=== PATIENT | male | born 1950 | race Caucasian/White ===

== ENCOUNTER → 2018-07-19 | Outpatient (CLI) | payer MEDICARE, OTHER ==
[~2018-07-19] MED LIST: ALIR75SY SQ; ASPI325T8 PO; LEVO750T31 PO; LISI1TAB5 PO; PRED-220 PO
--- NOTE | 2018-07-19 12:09 | RAD ---
MR#: [id number] Date of Study: 07/19/2018 Ordering Physician: ADRIEN MERCADO, Referring Physician: ADRIEN MERCADO, Tech: Muriel Hood RDMS, RVT, RTR APPROVED REPORT Patient Location : OUT-PATIENT Indications Lower Extremity Edema : Bilateral Bilateral greater saphenous veins stripped in the past for prior procedure. No reflux is noted in the bilateral lesser saphenous veins. Critical Notification Critical Value: No <Conclusion> Prior GSV vein stripping Negative for LSV reflux. Signed by : Azam Nova, Electronically Approved : 07/19/2018 12:08:25
--- NOTE | 2018-07-19 13:10 | RAD ---
MR#: [id number] Date of Study: 07/19/2018 Ordering Physician: ADRIEN MERCADO, Referring Physician: ADRIEN MERCADO, Tech: Muriel Hood, BRONSON, RVT, RTR APPROVED REPORT Patient Location: OUT-PATIENT Indications Peripheral Vascuolar Disease with history of Bilateral Arterial Grafts. Risk Factors History of Lower Extremity PAD: Bilaterally Parmar scale images demonstrate bilateral SFA occlusion. There are mild diffuse plaques throughout the vasculature. On the right, profunda velocities are wnl but the CUSTODIAL FOREMAN velocities are diminished likey related to mor e proximal disease. The fem-pop bypass graft is patent without anastomotic stenosis. The popliteal ar camila demonstrates mild disease. The peroneal artery demonstrates elevated velocities with likely 50% stenosis. The anterior tibial is likely diffusely diseased but patent. The proximal and mid posterior tibial is likely occluded with distal reconstituation via collaterals. On the left, the CUSTODIAL FOREMAN and DFA velocities are within normal limits. The SFA is occluded with patent gra ft from the fem-peroneal artery without anastomotic stenosis. The popliteal artery is occluded. The p osterior tibial artery is likely severely diseased. The anterior tibial artery is probably diffusely diseased but appears patent. VELOCITY AND DOPPLER WAVEFORM ANALYSIS RIGHT cm/secWaveformSeverity LEFT cm/secWaveform Severity pCFA 34.7pCFA 136.7 Prof Fem Art. 51.2Prof Fem Art. 47.4 Fem Art Prox. Occluded (100%)Fem Art Prox. Occluded (100%) Fem Art Mid. Occluded (100%)Fem Art Mid. Occluded (100%) Fem Art Dist. Occluded (100%)Fem Art Dist. Occluded (100%) Pop Art(AK) 124.0Pop Art(AK) Occluded (100%) COST AND SALES RECORD SUPERVISOR Prox. 36.8PTA Prox. COST AND SALES RECORD SUPERVISOR Mid.Occluded (100%)COST AND SALES RECORD SUPERVISOR Mid. COST AND SALES RECORD SUPERVISOR Dist. Occluded (100%)COST AND SALES RECORD SUPERVISOR Dist. 16.6 Per Art Prox. 189.1Per Art Prox. 47.4 JOANIE Prox. 56.4ATA Prox. 68.3 DPA 27.9DPA 12.4 BYPASS GRAFT ANALYSIS RIGHT cm/secWaveform SeverityLEFT cm/secWaveformSeverity Prox. Anastomosis 50.0Prox. Anastomosis 40.1 Proximal 60.6Proximal 58.7 Mid 52.1Mid 61.6 Distal 59.8Distal 67.7 Dist. Anastomosis 74.6Dist. Anastomosis 74.6 Critical Notification Critical Value: No <Conclusion> 1. Patent bilateral fem-below knee vein grafts. 2. Severe below knee disease with two vessel run-off bilaterally. 3. Cannot rule out right sided iliac disease. Signed by : Azam Nova, Electronically Approved : 07/19/2018 13:09:04
== END | disposition home or self-care (01) ==
LOC: US 08:57
PROVIDERS: ATTEND Internal Medicine Cardiovascular Disease
DX: I65.23 Occlusion and stenosis of bilateral carotid arteries (principal); I10 Essential (primary) hypertension; J44.9 Chronic obstructive pulmonary disease, unspecified; I25.10 Atherosclerotic heart disease of native coronary artery without angina pectoris; Z87.891 Personal history of nicotine dependence; Z95.5 Presence of coronary angioplasty implant and graft; Z88.8 Allergy status to other drugs, medicaments and biological substances; Z82.49 Family history of ischemic heart disease and other diseases of the circulatory system; Z82.3 Family history of stroke; Z80.1 Family history of malignant neoplasm of trachea, bronchus and lung
CPT/HCPCS: 93925; 93970

== ENCOUNTER → 2018-07-28 | Outpatient (CLI) | payer MEDICARE, OTHER ==
--- NOTE | 2018-07-28 13:03 | CARD ---
MR#: [id number] Date of Study: 07/28/2018 Ordering Physician: ADRIEN JORDAN, Referring Physician: ADRIEN JORDAN, Tech: Muriel Patterson APPROVED REPORT EXAM: Two-dimensional and M-mode echocardiogram with Doppler and color Doppler. Other Information Quality : AverageHR: 74bpm Rhythm : NSR INDICATION Coronary Artery Disease RISK FACTORS Hypertension Hyperlipidemia Diabetes 2D DIMENSIONS RVDd2.2 (2.9-3.5cm)Left Atrium(2D)3.6 (1.6-4.0cm) IVSd0.9 (0.7-1.1cm)Aortic Root(2D)3.2 (2.0-3.7cm) LVDd4.6 (3.9-5.9cm)LVOT Diameter2.1 (1.8-2.4cm) PWd1.0 (0.7-1.1cm)LVDs2.7 (2.5-4.0cm) FS (%) 41.1 %SV69.5 ml LVEF(%)72.1 (>50%) Aortic Valve AoV Peak Jhony.149.1cm/sAoV VTI27.8cm AO Peak GR.8.9mmHgLVOT Peak Jhony.107.4cm/s LVOT VTI 21.18cmAO Mean GR.5mmHg SARAH (VMAX)2.16fz6GCX (VTI)2.61cm2 Mitral Valve MV E Eqvvnxcg28.0cm/sMV DECEL YUPX736fn MV A Dldjbrst42.6cm/sE/A Ratio0.9 Tricuspid Valve TR P. Jdcjtvmw976yw/sRAP TGVDHYWR4uhBj TR Peak Gr.39kiPqKHCW67ggXm LEFT VENTRICLE The left ventricle is normal size. There is normal left ventricular wall thickness. The left ventricu lar systolic function is normal. The Ejection Fraction is 65-70%. There is normal LV segmental wall m otion. Transmitral Doppler flow pattern is normal for age. RIGHT VENTRICLE The right ventricle is normal size. There is normal right ventricular wall thickness. The right ventr icular systolic function is normal. ATRIA The left atrium size is normal. The right atrium size is normal. The interatrial septum is intact wit h no evidence for an atrial septal defect or patent foramen ovale as noted on 2-D or Doppler imaging. AORTIC VALVE The aortic valve is normal in structure and function. Doppler and Color Flow revealed no significant aortic regurgitation. There is no significant aortic valvular stenosis. There is no aortic valvular v egetation. MITRAL VALVE The mitral valve is normal in structure and function. There is no mitral valve stenosis. Doppler and Color-flow revealed trace mitral regurgitation. TRICUSPID VALVE The tricuspid valve is normal in structure and function. Doppler and Color Flow revealed no tricuspid valve regurgitation noted. There is no tricuspid valve stenosis. PULMONIC VALVE The pulmonic valve is not well visualized. Doppler and Color Flow revealed no pulmonic valvular regur gitation. GREAT VESSELS The aortic root is normal in size. The IVC is normal in size and collapses >50% with inspiration. PERICARDIAL EFFUSION There is no evidence of significant pericardial effusion. Critical Notification Critical Value: No <Conclusion> The left ventricular systolic function is normal. The Ejection Fraction is 65-70%. There is normal LV segmental wall motion. Doppler and Color-flow revealed trace mitral regurgitation. There is no evidence of significant pericardial effusion. Signed by : Adrien Jordan, Electronically Approved : 07/28/2018 13:02:14
== END | disposition home or self-care (01) ==
LOC: ECHO 09:16
PROVIDERS: ATTEND Internal Medicine Cardiovascular Disease
DX: I25.10 Atherosclerotic heart disease of native coronary artery without angina pectoris (principal); I10 Essential (primary) hypertension; E78.5 Hyperlipidemia, unspecified; E11.9 Type 2 diabetes mellitus without complications; J44.9 Chronic obstructive pulmonary disease, unspecified; E87.6 Hypokalemia; Z87.891 Personal history of nicotine dependence; Z88.8 Allergy status to other drugs, medicaments and biological substances; Z82.49 Family history of ischemic heart disease and other diseases of the circulatory system; Z82.3 Family history of stroke; Z80.1 Family history of malignant neoplasm of trachea, bronchus and lung
CPT/HCPCS: 93306

== ENCOUNTER → 2019-04-06 | Outpatient (CLI) | payer MEDICARE, OTHER ==
[~2019-04-06] MED LIST changes: +REGADENOSON 0.4 MG/5 ML DISP.SYRIN. IV ONE
--- NOTE | 2019-04-06 12:34 | RAD ---
MR#: [id number] Date of Study: 04/06/2019 Ordering Physician: ADRIEN MERCADO Referring Physician: RAÚL HILLIARD Tech: RT Talia William) (N) APPROVED REPORT Test Type: Pharmacological Stress Nurse/Tech: RT Stewart (Precious) (N) Test Indications: chest heaviness Cardiac History: CABG 4 bypass Medications: see ehr Medical History: see ehr Resting ECG: sinus rhythm Resting Heart Rate: 74 bpm Resting Blood Pressure: 141/66mmHg Pretest Chest Pain: None Nurse/Tech Notes Consent: The procedure was explained to the patient in lay terms. Informed consent was witnessed. Kyle eout was entered into [employer] ([employer]). History and Stress Test performed by RT Stewart (R) (N) Pharm. Details Pharmacologic stress testing was performed using 0.4mg per 5ml of regadenoson given intravenously ove r 7-10 seconds. POST EXERCISE Max HR: 106 bpm Max Blood Pressure: 135/64mmHg INTERPRETATION Stress EKG Conclusion: No evidence of stress induced EKG changes. Imaging Protocol IMAGE PROTOCOL: Rest Tc-99m/stress Tc-99m 1 day Rest: Stress: Viability: Radiopharm.Tc99m UlqpgrtrsJn26m Sestamibi Dose10.2mCi 30.8mCi Duration 15min. 15min. Img Date 04/06/2019 04/06/2019 Inj-Img Smth08zbl. 60min. Rest Admin Site:IV - Left AntecubitalAdministrator: RT Stewart (Precious)(N) Stress Admin Site: IV - Left AntecubitalAdministrator: RT Talia William)(N) STRESS DATA End Diast. Vol.93.0mlAv. Heart Rate97.0bpm LVEDV index BSA2.0mlCardiac Output0.1L/min End Syst. Vol.33.0mlCO Index BSA5.8L/min LVESV index BSA1.0mlMyocardial Vvuv372.0g Eject. Hfxtwfrt54.0% Stress Rates Pk. Fill Rate3.11EDV/secLVtime Pk. Fill 160.94msec Pk. Empty Rate4.72ESV/secLVtime Pk. Pykaq007.39msec 1/3 Pk. Fill1.46EDV/sec Stress Scores Regional WT3.00Summed WT11.00 Regional WM0.00Summed WM17.00 The rest and stress images show normal perfusion, normal contraction and thickening. LV Perf. Quant 17 Seg. SSS6.00 17 Seg. SRS7.00 17 Seg. SDS3.00 Stress Defect Extent (% LAD)0.00Rest Defect Extent (% LAD)8.80Rev. Defect Extent (% LAD)0.00 Stress Defect Extent (% LCX) 22.50Rest Defect Extent (% LCX)12.50Rev. Defect Extent (% LCX)21.30 Stress Defect Extent (% RCA)0.00Rest Defect Extent (% RCA)0.00Rev. Defect Extent (% RCA)0.00 Stress Defect Extent (% SHIVA)8.70Rest Defect Extent (% SHIVA)10.00Rev. Defect Extent (% SHIVA)6.50 Other Information Quality:Fair Risk Assessment: Low Risk Conclusion 1. No evidence of stress induced EKG changes on vasodilator stress testing. 2. Grossly normal perfusion at stress/rest. Images degraded by motion artifact, but no significant is chemia noted. 3. Normal EF at > 60% 4. Low risk study Signed by : Azam Nova, Electronically Approved : 04/06/2019 12:33:33
== END | disposition home or self-care (01) ==
LOC: NM 07:56
PROVIDERS: ATTEND Internal Medicine Cardiovascular Disease
DX: I25.10 Atherosclerotic heart disease of native coronary artery without angina pectoris (principal)
CPT/HCPCS: 78452; 93017; A9500; J2785; 96375; 96376

== ENCOUNTER 2020-04-08 20:43 | Observation (INO) | payer MEDICARE, OTHER ==
[~2020-04-08] VITALS: Ht 167.6 cm; Wt 72.4 kg
[~2020-04-08 20:43] MED LIST changes: +LISI1TAB19 PO; -LISI1TAB5 PO; -REGADENOSON 0.4 MG/5 ML DISP.SYRIN. IV ONE
--- NOTE | 2020-04-08 20:46 | PHYS DOC ---
Past History Past Medical History: Alcoholism, Anxiety, Arthritis, Bronchitis, CAD, CHF, DVT, High Cholesterol, Hypertension, TIA, Other Past Medical History Peripheral vascular disease Past Surgical History: Coronary Bypass Surgery, Other Past Surgical History Femoropopliteal bypass, stents Smoking: Cigarettes General Adult HPI: HPI: ".. 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 and all sudden.. I started feeling dizzy.. and confused... I for a moment.. could not figure out .. how to turn off the computer.. I got really fatigued. .. and robbie had a syncope episode.. I don't know how long it lasted... .I was having some fast heart rate.. skipped beats... but I was also short of breath....." Patient is a 69 year old male who presents with above hx and complaints of confusion, dyspnea, dizzy and syncope episode. Patient does have a significant past medical history for COPD, hypertension, hyperlipidemia, coronary artery disease status post coronary artery bypass, peripheral vascular disease status post femoropopliteal bypass bilateral lower legs,, CVA, with right sided weakness, TIA, gait disorder, continued tobacco use, arthritis, elevated lipids and deconditioning. Patient denies any recent changes in meds. Patient normally follows with Dr. Mckeon. Patient denies any recent travel outside the [place] area. Denies any recent sick ill contacts. Patient denies any history of immunosuppression. Review of Systems: Review of Systems: Constitutional: Denies fever or chills Eyes: Denies change in visual acuity HENT: Denies nasal congestion or sore throat Respiratory: Complains of shortness of breath Cardiovascular: Complains of edema. Complains of tachycardia and skipped beat GI: Denies abdominal pain, nausea, vomiting, bloody stools or diarrhea : Denies dysuria Musculoskeletal: Denies back pain or joint pain. Complains of generalized weakness and fatigue Integument: Denies rash Neurologic: Denies headache, denies new focal neuro changes. Endocrine: Denies polyuria or polydipsia Lymphatic: Denies swollen glands Psychiatric: Denies depression or anxiety Heart Score: HEART Score for Chest Pain: HEART Score for Chest Pain Response (Comments) Value History Moderately Suspicious 1 ECG Nonspecific Repolarizatio 1 Age > 65 2 Risk Factors >3 Risk Factors or Hx CAD 2 Troponin < Normal Limit 0 Total 6 Risk Factors: Risk Factors: DM, Current or recent (<one month) smoker, HTN, HLP, family history of CAD, obesity. Risk Scores: Score 0 - 3: 2.5% MACE over next 6 weeks - Discharge Home Score 4 - 6: 20.3% MACE over next 6 weeks - Admit for Clinical Observation Score 7 - 10: 72.7% MACE over next 6 weeks - Early Invasive Strategies Family History: Family History: Has not older sister at age 58 because of a stroke. Father age 60 because a heart attack. Mother age 60 because of stroke. Has a lung younger brother with lung cancer and hypertension. Current Medications: Current Meds: See nursing for home meds Allergies: Allergies: Allergies Coded Allergies Type Severity Reaction Last Updated Verified Goxjbwu-Qmz-Pvu Reductase Inhibitor Allergy Unknown 12/18/17 Yes Physical Exam: PE: Constitutional: Moderate acute distress, non-toxic appearance. [] HENT: Normocephalic, atraumatic, bilateral external ears normal, oropharynx moist, no oral exudates, nose normal. Tobacco stained mustache Eyes: PERRLA, EOMI, conjunctiva normal, no discharge. [] Neck: Normal range of motion, no tenderness, supple, no stridor. No bruits over the neck. JVD in the sitting position Cardiovascular: Tachycardia heart rate regular rhythm, no murmur. Occasional atrial premature contraction on monitor. PMI to the left. Lungs & Thorax: Bilateral breath sounds equal apexes scattered wheezing throughout on to auscultation [] coronary artery bypass graft. Basilar crackles bilaterally Abdomen: Bowel sounds decreased, soft, no tenderness, no masses, no pulsatile masses. [Old surgery scars Skin: Warm, dry, no erythema, no rash. Poor turgor. Peripheral venous stasis changes. Back: No tenderness, no CVA tenderness. [] Extremities: No tenderness, no cyanosis, no clubbing, has generalized right- sided weakness from previous stroke,, distal edema. Decreased distal sensation. Unable to appreciate cording. 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 Psychologic: Affect anxious, judgement normal, mood normal. [] EKG: EKG: My interpretation EKG shows a sinus rhythm at 98 bpm. Does have PACs, left axis deviation, nonspecific contour changes, no frankly acute STEMI with contralateral changes [] Radiology/Procedures: Radiology/Procedures: [address] [address] IMAGING REPORT Signed PATIENT: JABARI DELUNA ACCOUNT: [id number] : 1950 LOCATION: ER AGE: 69 SEX: M EXAM STATUS: REG ER ORD. PHYSICIAN: THEODORA TIERNEY MD REASON: mental status change PROCEDURE: CT HEAD WO CONTRAST Exam: CT head INDICATION: Mental status change TECHNIQUE: Sequential axial images through the head were obtained without the administration of IV contrast. Comparisons: None FINDINGS: No focal parenchymal lesion or hemorrhage is identified. There is no midline shift or sulcal effacement. Patchy areas of hypodensity within the periventricular white matter bilaterally. No acute vascular territory infarction is identified. Parmar-white distinction is preserved. The ventricular system is within normal limits without compression hydrocephalus. The basal cisterns are well maintained. The visualized portions of the paranasal sinuses and mastoid air cells are well-pneumatized. No acute fractures. IMPRESSION: Areas of ischemia, likely chronic, bilaterally. Exposure: One or more of the following in the visualized dose reduction techniques were utilized for this examination: 1. Automated exposure control 2. Adjustment of the MA and/or KV according to patient size Use of iterative of reconstructive technique Electronically signed by: Earline Jacinto MD (04/08/2020 9:32 PM) [id number] DICTATED AND SIGNED BY: EARLINE JACINTO MD DATE: 04/08/202131 CC: THEODORA TIERNEY MD; RYAN MCKEON MD ~ [][address] [address] IMAGING REPORT Signed PATIENT: JABARI DELUNA ACCOUNT: [id number] : 1950 LOCATION: ER AGE: 69 SEX: M EXAM STATUS: REG ER ORD. PHYSICIAN: THEODORA TIERNEY MD REASON: hx copd, dyspnea PROCEDURE: PORTABLE CHEST 1V Exam: Chest one view INDICATION: COPD TECHNIQUE: Frontal view of the chest Comparisons: None FINDINGS: Sternotomy wires are noted. The cardiomediastinal silhouette and pulmonary vessels are within normal limits. Small left pleural effusion. Visualized lung bases are clear. IMPRESSION: Findings likely related to pulmonary edema with small left pleural effusion. Electronically signed by: Earline Jacinto MD (04/08/2020 9:33 PM) [id number] DICTATED AND SIGNED BY: EARLINE JACINTO MD DATE: 04/08/202132 CC: THEODORA TIERNEY MD; RYAN MCKEON MD ~ Course & Med Decision Making: Course & Med Decision Making Pertinent Labs and Imaging studies reviewed. (See chart for details) Patient presentation testing and treatment plan discussed with . Will admit for further evaluation of consults to cardiology and neurology.. Well start antibiotics to cover for bronchitis and COPD exacerbation. Impression: 1. Syncope 2. CHF-diastolic dysfunction BNP 1397 3. Pulmonary Edema 4. Leukocytosis 11..9 5. Elevated D-dimer 1.59 6. Elevated Creat. 1.6 7. Elevated CRP 23.2 8. COPD exacerbation 9. Elevated glucose 132 [] Dragon Disclaimer: Dragon Disclaimer: This electronic medical record was generated, in whole or in part, using a voice recognition dictation system. Departure Departure: Disposition: HOME/RESIDENCE PRIOR TO ADM Condition: STABLE Referrals: RYAN MCKEON MD (PCP) Dragon Disclaimer This chart was dictated in whole or in part using Voice Recognition software in a busy, high-work load, and often noisy Emergency Department environment. It may contain unintended and wholly unrecognized errors or omissions. Dragon Disclaimer This chart was dictated in whole or in part using Voice Recognition software in a busy, high-work load, and often noisy Emergency Department environment. It may contain unintended and wholly unrecognized errors or omissions. THEODORA TIERNEY MD Apr 08, 2020 20:46
[2020-04-08] MEDS ORDERED: IV RINGERS SOLUTION,LACTATED 1,000 ML IV SCH (20:48)
--- NOTE | 2020-04-08 21:03 | EKG ---
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
--- NOTE | 2020-04-08 21:35 | RAD ---
Exam: CT head INDICATION: Mental status change TECHNIQUE: Sequential axial images through the head were obtained without the administration of IV contrast. Comparisons: None FINDINGS: No focal parenchymal lesion or hemorrhage is identified. There is no midline shift or sulcal effacement. Patchy areas of hypodensity within the periventricular white matter bilaterally. No acute vascular territory infarction is identified. Parmar-white distinction is preserved. The ventricular system is within normal limits without compression hydrocephalus. The basal cisterns are well maintained. The visualized portions of the paranasal sinuses and mastoid air cells are well-pneumatized. No acute fractures. IMPRESSION: Areas of ischemia, likely chronic, bilaterally. Exposure: One or more of the following in the visualized dose reduction techniques were utilized for this examination: 1. Automated exposure control 2. Adjustment of the MA and/or KV according to patient size Use of iterative of reconstructive technique Electronically signed by: Earline Azevedo MD (04/08/2020 9:32 PM) [id number]
--- NOTE | 2020-04-08 21:36 | RAD ---
Exam: Chest one view INDICATION: COPD TECHNIQUE: Frontal view of the chest Comparisons: None FINDINGS: Sternotomy wires are noted. The cardiomediastinal silhouette and pulmonary vessels are within normal limits. Small left pleural effusion. Visualized lung bases are clear. IMPRESSION: Findings likely related to pulmonary edema with small left pleural effusion. Electronically signed by: Earline Azevedo MD (04/08/2020 9:33 PM) [id number]
[2020-04-08 22:29] LABS: BASO % 0 % (0-3); EOS % 0 % (0-3); HEMATOCRIT 44.1 % (39.0-53.0); HEMOGLOBIN 14.9 g/dL (13.0-17.5); LYMPH # 1.3 x10^3/uL (1.0-4.8); LYMPH % 11 % (24-48); MEAN CORPUSCULAR HEMOGLOBIN 31 pg (25-35); MEAN CORPUSCULAR HGB CONC 34 g/dL (31-37); MEAN CORPUSCULAR VOLUME 93 fL (79-100); MONO # 0.7 x10^3/uL (0.0-1.1); MONO % 6 % (0-9); NEUT # 9.8 x10^3uL (1.8-7.7); NEUT % 83 % (31-73); PLATELET COUNT 261 x10^3/uL (140-400); RED BLOOD COUNT 4.75 x10^6/uL (4.30-5.70); RED CELL DISTRIBUTION WIDTH 13.3 % (11.5-14.5); WHITE BLOOD COUNT 11.9 x10^3/uL (4.0-11.0)
[2020-04-08 22:44] LABS: CALCIUM 9.2 mg/dL (8.5-10.1); CREATININE 1.6 mg/dL (0.7-1.3); GFR 42.9; POTASSIUM 3.8 mmol/L (3.5-5.1)
[2020-04-08 22:55] LABS: ALBUMIN 3.5 g/dL (3.4-5.0); C REACTIVE PROTEIN 23.2 mg/L (0-3.3); DIRECT BILIRUBIN 0.1 mg/dL (0.0-0.2); MAGNESIUM 2.3 mg/dL (1.8-2.4); TOTAL BILIRUBIN 0.5 mg/dL (0.2-1.0); TOTAL PROTEIN 7.3 g/dL (6.4-8.2)
[2020-04-09] MEDS ORDERED: FUROSEMIDE 40 MG/4 ML VIAL IVP ONE (00:15)
[2020-04-09] MEDS ORDERED: ENOXAPARIN ** NOTE DOSE ** SYRINGE SQ ONE ×2 (00:45→09:00)
[2020-04-09] MEDS ORDERED: cefTRIAXone SODIUM 1 GM VIAL ONE (00:59)
[2020-04-09] MEDS ORDERED: IV NORMAL SALINE 50ML 50 ML ONE (00:59)
[2020-04-09] MEDS ORDERED: AZITHROMYCIN 250 MG TABLET. PO ONE (01:00)
[2020-04-09] MEDS ORDERED: CONTRAST GIVEN MC PRN (01:15)
[2020-04-09] MEDS ORDERED: ACETAMINOPHEN 325 MG TABLET PO PRN (01:15)
[2020-04-09] MEDS ORDERED: ONDANSETRON PF 4 MG/2 ML VIAL. IVP PRN (01:15)
[2020-04-09] MEDS ORDERED: IOHEXOL 350 MG/ML 100 ML VIAL. IV ONE (01:15)
--- NOTE | 2020-04-09 02:08 | RAD ---
EXAM: CT chest with contrast - pulmonary embolus protocol CLINICAL HISTORY: Reason: Syncope, dyspnea: Reduced dose COMPARISON: None. TECHNIQUE: CT of the chest following the administration of intravenous contrast during the pulmonary arterial phase. Axial, coronal and sagittal reformatted images were generated including MIP images. ---PQRS compliance statement - One or more of the following individualized dose reduction techniques were utilized for this study: 1. Automated exposure control 2. Adjustment of the mA and/or kV according to patient size 3. Use of iterative reconstruction technique--- FINDINGS: CHEST: Diagnostic quality: Adequate. Pulmonary emboli: None seen Right heart strain: None Pulmonary arteries: Normal in caliber. Heart is not enlarged. No pericardial effusion. Coronary artery calcifications are seen. Small left pleural effusion. No pneumothorax. Patchy opacities in the lingula likely atelectasis or consolidation. Emphysematous changes are seen. Linear and bandlike opacities right greater than left lower lobes likely scarring/atelectasis. A left lower lobe lung nodule measures 1.3 x 0.9 cm. No mediastinal lymphadenopathy. No axillary lymphadenopathy. Enlarged hilar lymph nodes are seen, for example a new accounts banking representative left hilar lymph node measures 1.8 x 1.3 cm. Visualized Upper abdomen: Renal and hepatic cysts are seen. Calcified gallstones are seen within the gallbladder. Bones: Degenerative changes of spine are seen. No aggressive osseous lesion. Mild rightward curvature of the lumbar spine. IMPRESSION: 1. No evidence for acute pulmonary embolus. 2. Small left pleural effusion. 3. Lingular opacities may represent atelectasis or consolidation. 4. A 1.3 x 0.9 cm left lower lobe lung nodule is seen. Further evaluation with PET scan is recommended. Left hilar lymphadenopathy is seen. Electronically signed by: Pedro Paniagua MD (04/09/2020 2:05 AM) [id number]
--- NOTE | 2020-04-09 03:05 | NUR ---
Pt arrived from ED via EMS in stable condition. Oriented to admit room. Placed pt on telemetry and continued with IVFs LR. Pt admitted to floor and orders carried out.
[2020-04-09 03:15] VITALS: BP 131/64
[2020-04-09 03:26] LABS: BACTERIA,URINE 0 /HPF (0-FEW); BILIRUBIN,URINE NEG (NEG); CLARITY,URINE CLEAR; COLOR,URINE YELLOW; GLUCOSE,URINE NEG (NEG); NITRITE,URINE NEG (NEG); RBC,URINE 0 /HPF (0-2); SQUAMOUS EPITHELIAL CELL,UR OCC /LPF; UROBILINOGEN,URINE 0.2 mg/dL (0.2 mg/dL); WBC,URINE OCC /HPF (0-4)
[2020-04-09 03:43] LABS: BARBITURATES NEG (NEG); BENZODIAZEPINES NEG (NEG); CANNABINOIDS NEG (NEG); COCAINE NEG (NEG); METHADONE NEG (NEG); OPIATES NEG (NEG); PHENCYCLIDINE NEG (NEG)
[2020-04-09 03:44] LABS: AMPHETAMINE/METHAMPHETAMINE NEG (NEG)
[2020-04-09] MEDS ORDERED: IPRATRPIUM/ALBUTEROL 0.5/2.5MG 3 ML NEBU. ONE (04:50)
[2020-04-09] MEDS: IPRATRPIUM/ALBUTEROL 0.5/2.5MG 3 ML NEBU. NEB SCH ×2 (04:57→09:13)
[2020-04-09] MEDS ORDERED: ASPIRIN CHEWABLE 81 MG TABLET. PO SCH (08:00)
--- NOTE | 2020-04-09 09:23 | CONS ---
DATE OF CONSULTATION: 04/09/2020 ADDENDUM I just finished Neuro consult on the patient. Please add after the examination add diagnostics. DIAGNOSTIC DATA: Initial chest x-ray revealed a small left pleural effusion. CT angio of the chest revealed no evidence of pulmonary embolism. A large hilar lymph node was also seen and measured 1.8 x 1.3 cm along with renal and hepatic cysts and possible atelectasis or consolidation in the left lower lobe. Nonenhanced head CT scan revealed no acute intracranial process, but shows bilateral small vessel ischemic changes. Please add those to Neuro consult and also add to the impression, a small left pleural effusion. M Carmen BOWLING MD DR: RUSSELL/guzman JOB#: [id number] / [id number]
--- NOTE | 2020-04-09 09:39 | PDOC2 ---
CARDIAC CONSULT DATE OF CONSULT Date Of Consult DATE: 04/09/20 TIME: 09:37 REASON FOR CONSULT Reason for Consult CHF syncope REFERRING PHYSICIAN Referring Physician Dr. Mathias SOURCE Source: Chart review, Patient HPI History of Present Illness This is a 69 yo male who presented with near syncopal episode. Patient reports feeling excessively tired last night. Stood up off the couch, felt dizzy and had subsequent syncopal episode. No palpitations, chest pain, shortness of breath or nausea/vomiting. Labs notable for dehydration upon arrival. Blood pressure low- end. Feeling better post IVF. PAST MEDICAL HISTORY Cardiovascular: CAD, CHF, HTN, NH, hyperipidemia, Other (PAD) Pulmonary: COPD CENTRAL NERVOUS SYSTEM: CVA Renal/: Chronic renal insuff PAST SURGICAL HISTORY Past Surgical History: CABG, Other (bilateral fem-pop) FAMILY HISTORY Family History: Hypertension SOCIAL HISTORY Smoke: 2 packs per day (2-3 ppd) ALCOHOL: heavy (quit 01/21/20) Drugs: None Lives: with Family CURRENT MEDICATIONS Current Medications Current Medications Lactated Ringer's 1,000 ml @ 100 mls/hr Q10H IV Last administered on 04/08/20at 22:10; Start 04/08/20 at 20:48; Stop 04/09/20 at 06:47; Status DC Furosemide (Lasix) 40 mg 1X ONCE IVP Last administered on 04/09/20at 01:00; Start 04/09/20 at 00:15; Stop 04/09/20 at 00:16; Status DC Enoxaparin Sodium (Lovenox 100mg Syringe) 70 mg 1X ONCE SQ Last administered on 04/09/20at 01:00; Start 04/09/20 at 00:45; Stop 04/09/20 at 00:46; Status DC Iohexol (Omnipaque 350 Mg/ml) 100 ml 1X ONCE IV Last administered on 04/09/20at 01:28; Start 04/09/20 at 01:15; Stop 04/09/20 at 01:16; Status DC Ceftriaxone Sodium 1 gm/ Sodium Chloride 50 ml @ 100 mls/hr 1X ONCE IV Last administered on 04/09/20at 01:01; Start 04/09/20 at 01:00; Stop 04/09/20 at 01:29; Status DC Azithromycin (Zithromax) 500 mg 1X ONCE PO Last administered on 04/09/20at 01:01; Start 04/09/20 at 01:00; Stop 04/09/20 at 01:15; Status DC Sodium Chloride 50 ml @ As Directed STK-MED ONCE .ROUTE ; Start 04/09/20 at 00:59; Stop 04/09/20 at 00:59; Status DC Ceftriaxone Sodium (Rocephin) 1 gm STK-MED ONCE .ROUTE ; Start 04/09/20 at 00:59; Stop 04/09/20 at 00:59; Status DC Info (Do NOT chart on this entry -- for MONITORING) 1 each PRN DAILY PRN MC SEE COMMENTS; Start 04/09/20 at 01:15; Stop 04/11/20 at 01:14 Ondansetron HCl (Zofran) 4 mg PRN Q4HRS PRN IVP NAUSEA/VOMITING; Start 04/09/20 at 01:15; Stop 04/10/20 at 01:14 Acetaminophen (Tylenol) 650 mg PRN Q4HRS PRN PO FEVER > 100.3'F; Start 04/09/20 at 01:15; Stop 04/10/20 at 01:14 Albuterol/ Ipratropium (Duoneb) 3 ml RTQID NEB Last administered on 04/09/20at 04:57; Start 04/09/20 at 08:00; Stop 04/10/20 at 07:59 Enoxaparin Sodium (Lovenox 80mg Syringe) 70 mg BID ONCE SQ ; Start 04/09/20 at 09:00; Stop 04/09/20 at 09:01; Status DC Aspirin (Aspirin Chewable) 81 mg DAILYWBKFT PO Last administered on 04/09/20at 09:28; Start 04/09/20 at 08:00 Azithromycin (Zithromax) 250 mg HS PO ; Start 04/09/20 at 21:00 Ceftriaxone Sodium 1 gm/ Sodium Chloride 50 ml @ 100 mls/hr Q24H IV ; Start 04/09/20 at 21:00 Albuterol/ Ipratropium (Duoneb) 3 ml STK-MED ONCE .ROUTE ; Start 04/09/20 at 04:50; Stop 04/09/20 at 04:51; Status DC Active Scripts Active Reported Aspirin 325 Mg Tablet 1 Tab PO DAILY LAST DOSE GIVEN: DATE: TODAY TIME: AM NEXT DOSE DUE: DATE: TOMORROW TIME: AM Lisinopril-Hctz 20-12.5 Mg Tab (Lisinopril/Hydrochlorothiazide) 1 Each Tablet 1 Tab PO DAILY LAST DOSE GIVEN: DATE: TODAY TIME: AM NEXT DOSE DUE: DATE: TOMORROW TIME: AM Aspirin 325 Mg Tablet 325 Mg PO Praluent Syringe (Alirocumab) 75 Mg/1 Ml Syringe 75 Mg SQ ALLERGIES Allergies: Coded Allergies: Yaqfryu-Mxv-Thf Reductase Inhibitor (Verified Allergy, Unknown, 12/18/17) ROS Review of Systems 14 point ROS conducted with pertinent positives noted above in HPI PHYSICAL EXAM General: Alert, Oriented X3, Cooperative, No acute distress HEENT: Atraumatic Lungs: Normal air movement Heart: Regular rate, Normal S1 Abdomen: Normal bowel sounds, Soft Extremities: No edema, Normal pulses Skin: No rashes, No breakdown Neuro: Normal speech, Sensation intact Psych/Mental Status: Mental status NL, Mood NL VITALS Vital Signs Vital Signs Date Time Temp Pulse Resp B/P (MAP) Pulse Ox O2 Delivery O2 Flow Rate FiO2 04/09/20 09:14 95 04/09/20 05:24 80 04/09/20 05:16 Room Air 04/09/20 03:15 98.3 20 131/64 (86) LABS LABS Laboratory Tests Test 04/08/20 22:05 04/09/20 02:45 04/09/20 06:02 White Blood Count 11.9 x10^3/uL (4.0-11.0) Red Blood Count 4.75 x10^6/uL (4.30-5.70) Hemoglobin 14.9 g/dL (13.0-17.5) Hematocrit 44.1 % (39.0-53.0) Mean Corpuscular Volume 93 fL (79-100) Mean Corpuscular Hemoglobin 31 pg (25-35) Mean Corpuscular Hemoglobin Concent 34 g/dL (31-37) Red Cell Distribution Width 13.3 % (11.5-14.5) Platelet Count 261 x10^3/uL (140-400) Neutrophils (%) (Auto) 83 % (31-73) Lymphocytes (%) (Auto) 11 % (24-48) Monocytes (%) (Auto) 6 % (0-9) Eosinophils (%) (Auto) 0 % (0-3) Basophils (%) (Auto) 0 % (0-3) Neutrophils # (Auto) 9.8 x10^3uL (1.8-7.7) Lymphocytes # (Auto) 1.3 x10^3/uL (1.0-4.8) Monocytes # (Auto) 0.7 x10^3/uL (0.0-1.1) Eosinophils # (Auto) 0.0 x10^3/uL (0.0-0.7) Basophils # (Auto) 0.0 x10^3/uL (0.0-0.2) Prothrombin Time 10.4 SEC (9.4-11.4) Prothromb Time International Ratio 1.0 (0.9-1.1) Activated Partial Thromboplast Time 29 SEC (23-33) D-Dimer (Julieth) 1.59 mg/L (0.00-0.50) Sodium Level 142 mmol/L (136-145) Potassium Level 3.8 mmol/L (3.5-5.1) Chloride Level 103 mmol/L (98-107) Carbon Dioxide Level 32 mmol/L (21-32) Anion Gap 7 (6-14) Blood Urea Nitrogen 17 mg/dL (8-26) Creatinine 1.6 mg/dL (0.7-1.3) Estimated GFR (Cockcroft-Gault) 42.9 Glucose Level 132 mg/dL (70-99) Calcium Level 9.2 mg/dL (8.5-10.1) Magnesium Level 2.3 mg/dL (1.8-2.4) Total Bilirubin 0.5 mg/dL (0.2-1.0) Direct Bilirubin 0.1 mg/dL (0.0-0.2) Aspartate Amino Transf (AST/SGOT) 11 U/L (15-37) Alanine Aminotransferase (ALT/SGPT) 14 U/L (16-63) Alkaline Phosphatase 86 U/L (46-116) Creatine Kinase 48 U/L (39-308) Troponin I Quantitative < 0.017 ng/mL (0-0.055) C-Reactive Protein 23.2 mg/L (0-3.3) GS-Dgm-Z-Type Natriuretic Peptide 1397 pg/mL (0-124) Total Protein 7.3 g/dL (6.4-8.2) Albumin 3.5 g/dL (3.4-5.0) Lipase 194 U/L (73-393) Urine Collection Type Unknown Urine Color Yellow Urine Clarity Clear Urine pH 5.5 Urine Specific [place] 1.010 Urine Protein Neg (NEG-TRACE) Urine Glucose (UA) Neg mg/dL (NEG) Urine Ketones (Stick) Neg mg/dL (NEG) Urine Blood Neg (NEG) Urine Nitrite Neg (NEG) Urine Bilirubin Neg (NEG) Urine Urobilinogen Dipstick 0.2 mg/dL (0.2 mg/dL) Urine Leukocyte Esterase Neg (NEG) Urine RBC 0 /HPF (0-2) Urine WBC Occ /HPF (0-4) Urine Squamous Epithelial Cells Occ /LPF Urine Bacteria 0 /HPF (0-FEW) Urine Opiates Screen Neg (NEG) Urine Methadone Screen Neg (NEG) Urine Barbiturates Neg (NEG) Urine Phencyclidine Screen Neg (NEG) Urine Amphetamine/Methamphetamine Neg (NEG) Urine Benzodiazepines Screen Neg (NEG) Urine Cocaine Screen Neg (NEG) Urine Cannabinoids Screen Neg (NEG) Urine Ethyl Alcohol Neg (NEG) Glucose (Fingerstick) 87 mg/dL (70-99) ECHOCARDIOGRAM Echocardiogram <Conclusion> The left ventricular systolic function is normal. The Ejection Fraction is 65-70%. There is normal LV segmental wall motion. Doppler and Color-flow revealed trace mitral regurgitation. There is no evidence of significant pericardial effusion. DATE: 07/28/18 1302 HEART CATH Heart Cath Conclusion #1. Severe blackfeet coronary artery disease #2. Severe instent restenosis of LAD. (Recurrent instent restenosis) #3. Normal left function Recommendations Cardiac Rehabilitation Referral Aggressive Medical Therapy Cardiac Risk Reduction Program CABG On several CABG will be requested. In the meanwhile patient will be encouraged to quit smoking. Optimize medical therapy to continue. DATE: 07/12/14 1732 ASSESSMENT/PLAN Assessment/Plan 1. Syncope. Most probably secondary to dehydration 2. CAD s/p CABG x4 07/2014. Clinically stable. CP free 3. Hypertension; low end 4. Hyperlipidemia; allergy to statin 5. PAD s/p bilateral fem-pop bypass. On Xarelto, Plavix 6. Arrhythmia; having intermittent bigeminy. otherwise maintaining SR/ST 7. COPD with continued tobaccoism 8. JACQUELYN, dehydration; improved with IVF 9. H/o alcohol abuse; last drink 01/21/20 Recommendations [facility] TSH, Mg Outpatient echo scheduled today, will obtain prior to discharge Outpatient event monitor arranged Continue secondary prevention measure Discussed lifestyle modification, smoking cessation. Patient report interest in quitting, but has had multiple attempts and has been unsuccessful. Reports as "impossible" Follow up in our office with Dr. Jordan as scheduled IMTIAZ SILVA APRN Apr 09, 2020 09:39
--- NOTE | 2020-04-09 10:10 | CONS ---
DATE OF CONSULTATION: REFERRING PHYSICIAN: Nikolai Hsieh MD REASON FOR CONSULTATION: Syncope versus seizure. HISTORY OF PRESENT ILLNESS: This is a 69-year-old right-handed male who was admitted through Emergency Room on account of possible having a fainting spell. According to the patient, he was using his computer at 8:30 last night and all of a sudden he felt very sleepy, then he got confused for a few minutes. Apparently, he had either a fainting spell or seizure. The patient did not recall the event, but he woke up on the floor. He did not have any obvious injuries. The patient stated he probably stayed on the floor for approximately 15 minutes. He discussed this issue with his and finally he decided to come to Emergency Room to rule out any serious heart problems or stroke. Apparently, the patient was admitted to [facility] 2 years ago with possible TIA versus stroke when he presented with right-sided weakness. The patient also complains of intermittent numbness and paresthesia of the upper extremities and feet as well. He has tendency to fall to the right side, but he did not sustain any recent falls except for possible fall last night. Currently, he denies chest pain, shortness of breath or palpitation, dysarthria, dysphagia or dizziness. Initial nonenhanced head CT scan revealed evidence of periventricular chronic small vessel ischemic changes. The patient stated he is almost back on his baseline. PAST MEDICAL HISTORY: Significant for coronary artery disease; myocardial infarction, required stent; history of stroke versus TIA 2 years ago without current neuro residual; COPD; hyperlipidemia; hypertension; peripheral vascular disease; and unsteady gait, required usage of a cane. PAST SURGICAL HISTORY: Significant for coronary artery bypass graft 5 years ago. He had ____ history and colonoscopy. SOCIAL HISTORY: The patient is . He has no children. He smokes heavily, 2-3 packs of cigarettes daily, and he used to be heavy drinker until 01/2020, so he quit. FAMILY HISTORY: His sister is 60 and she had stroke. Father at age of 60 because of coronary artery disease and myocardial infarction. His mother at age of 60 because of stroke. Younger brother had lung cancer and hypertension. CURRENT HOME MEDICATIONS: Aspirin 325 mg daily, Levaquin 750 mg daily, lisinopril/hydrochlorothiazide daily, prednisone 10 mg daily. ALLERGIES: STATINS, HMG-COA REDUCTASE INHIBITOR. REVIEW OF SYSTEMS: A 10-point review of system was performed as mentioned above in history of present illness. PHYSICAL EXAMINATION: GENERAL: Well-developed, well-nourished male, not in acute distress. He weighs 72.4 kilos. VITAL SIGNS: Blood pressure 131/64, respiratory rate 20, pulse is 81, oxygen saturation is 96 and temperature is 98.3. HEENT: Normocephalic, atraumatic, otherwise unremarkable. NECK: Supple. Negative for carotid bruit, lymphadenopathy or thyromegaly. LUNGS: Clear to A and P. CARDIOVASCULAR: Regular rate and rhythm, normal S1, S2. ABDOMEN: Soft. Bowel sounds positive. EXTREMITIES: Negative for cyanosis, clubbing or edema. NEUROLOGICAL: Mental status: The patient is alert and oriented x 3. Speech is fluent. There is no language dysfunction. Memory, judgment, and abstracting thinking are normal. The patient denies hallucination or delusion. Cranial nerves: Visual woodruff are full. The pupils are reactive to light and accommodation. The extraocular movements are intact. There is no nystagmus. There is no facial motor or sensory deficit. Hearing is intact bilaterally. The palate is elevated symmetrically. Sternocleidomastoid muscles are powerful bilaterally. The patient shrugs his shoulders symmetrically, protrudes his tongue in the midline without fasciculation or atrophy. Motor examination: No focal muscle bulk was seen. The tone is normal. The strength is 5/5 throughout. Sensory examination revealed diminished pinprick and light touch senses in patchy distributions in both lower extremities. Deep tendon reflexes were asymmetric and active with absent Achilles responses bilaterally. Gait: The stance is steady. The Romberg sign is positive. LABORATORY DATA: CBC revealed white blood cells of 11.9 thousand, hemoglobin 14.9, hematocrit 44.1, platelet count 261,000. Chemistry revealed sodium 142, potassium 3.8, chloride 103, CO2 of 32, BUN 17, creatinine 1.6 and glucose 132. Calcium 9.2. Liver enzymes low. Troponin level is normal. CRP is elevated at 23.2 and NPB is high at 1397. Normal lipase. Urinalysis is negative for urinary tract infection. Urine drug screen is negative as well. IMPRESSION: 1. Acute mental status changes, followed by possible syncope versus fainting spells, rule out non-convulsive seizure versus transient ischemic attack. 2. Multiple medical problems include coronary artery disease status post coronary artery bypass grafting, hypertension, hyperlipidemia, chronic obstructive pulmonary disease. 3. Leukocytosis, rule out systemic infections as pneumonia. 4. Heavy tobaccoism. 5. Numbness and paresthesia of the lower extremities and possible right carpal tunnel syndrome. RECOMMENDATIONS: 1. Continue with current management initiated by Dr. Hsieh. 2. The patient may need a Cardiology consult, rule out systolic congestive heart failure. 3. The patient needs electroencephalogram and EMG/NCS of the upper and lower extremities to rule out entrapment neuropathy versus radiculopathy. Those tests can be done by me on outpatient basis as well as electroencephalogram on Wednesdays. 4. Physical therapy evaluation. M Carmen BOWLING MD DR: RUSSELL/guzman JOB#: [id number] / [id number]
[2020-04-09 10:22] VITALS: BP 121/67
[2020-04-09 10:23] VITALS: BP 96/55
[2020-04-09 10:24] VITALS: BP 104/63
[2020-04-09 10:28] LABS: CALCIUM 8.6 mg/dL (8.5-10.1); CREATININE 1.6 mg/dL (0.7-1.3); GFR 42.9; MAGNESIUM 2.1 mg/dL (1.8-2.4); POTASSIUM 3.1 mmol/L (3.5-5.1)
--- NOTE | 2020-04-09 10:55 | RAD ---
Clinical indications: Syncope. Duplex sonography of the cervical portion of both carotid arteries was performed including color flow imaging and spectral waveform analysis with flow velocity measurement and fleming scale evaluation. Right side: Peak systolic flow velocity of the CCA is 74 cm/sec. Peak systolic flow velocity of the ICA is 187 cm/sec. Thus, the ICA/CCA ratio is 2.5. Peak end diastolic flow velocity of the ICA is 38 cm/sec. The peak systolic velocity of the ECA is 299 cm/sec. Left side: Peak systolic flow velocity of the CCA is 124 cm/sec. Peak systolic flow velocity of the ICA is 181 cm/sec. Thus, the ICA/CCA ratio is 1.5. Peak end diastolic flow velocity of the ICA is 37 cm/sec. Peak systolic flow velocity of the ECA is 306 cm/sec. There is calcified plaque within the carotid bulbs bilaterally. However, the plaque formation does not appear as significant as the peak systolic flow velocities would suggest. Elevated flow velocities could be related to hypertension. However, would recommend CTA of the neck to exclude a significant stenosis. Antegrade vertebral flow is seen bilaterally. The measurements were made using the NASCET criteria. Impression: Elevated peak systolic flow velocities throughout which may be related to hypertension or significant stenosis. Therefore, recommend a CTA of the neck to exclude a significant stenosis. Electronically signed by: Colton Buckley MD (04/09/2020 10:52 AM) [id number]
--- NOTE | 2020-04-09 11:32 | HP ---
ADMIT DATE: 04/09/2020 ATTENDING PHYSICIAN: Jarrod Mercedes MD CHIEF COMPLAINT: Near syncope. HISTORY OF PRESENT ILLNESS: The patient is a pleasant 69-year-old gentleman admitted through the ED last night with near syncope. He was at the computer, he was confused. He had trouble figuring out and he passed out for a short period of time. He came about, he felt weak, had some skipped heartbeats. He was also short of breath. He asked his grandson to come take him to the hospital. In the ED, he had a CT, which showed no evidence of blood clots. He had mild bronchitis. There is a presence of a 1.3 x 0.9 cm left lower lobe nodule, which recommended further evaluation. This can be done as an outpatient. His blood pressure was marginal. He was on a diuretic. He was dehydrated. He felt better with some IV hydration. He was admitted for further treatment and evaluation. PAST MEDICAL HISTORY: Significant for anxiety, chronic alcoholism, depression, bronchitis, COPD. He has tried very hard to quit smoking, coronary artery disease, peripheral vascular disease, aortofemoral bypass, hypertension and TIAs. He had quit drinking alcohol just by himself without any issues; however, smoking led to the use of a vape, patches and the smoking, so he has been working on it. 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 CURRENT MEDICATIONS: Include lisinopril, hydrochlorothiazide and aspirin daily. ALLERGIES: He has allergies to STATIN DRUGS. PAST SURGICAL HISTORY: Aortofemoral bypass and coronary artery bypass with stents. FAMILY HISTORY: Noncontributory. REVIEW OF SYSTEMS: Significant for the alcohol use. He has not had any seizures, no DUIs. He quit drinking 3 months ago. He continues to smoke a pack of cigarettes daily. He has tried very hard to quit without any success. All other systems reviewed and determined to be negative. PHYSICAL EXAMINATION: GENERAL: When I saw him, this is a pleasant, alert gentleman. VITAL SIGNS: Initial vital signs showed a blood pressure of 97/40, repeated today is up to 131/64, heart rate was 81. He was afebrile, oxygen saturation 96% on room air. HEENT: Head is without trauma. Pupils are reactive. Sclerae nonicteric. Oropharynx is clear. NECK: Supple, no bruits identified. LUNGS: Minimal wheezing. CARDIOVASCULAR: Showed regular heart tones. No obvious gallops. Occasional extra systolic beat. Peripheral pulses are palpable and full. ABDOMEN: Soft, scaphoid, nontender, no organomegaly. Bowel sounds are normoactive. EXTREMITIES: Show fairly good circulation and trace edema. NEUROLOGIC: Focally intact. Speech is fluent. PERTINENT LABORATORY AND X-RAY STUDIES: His hemoglobin on admission was 14.9 g/dL with white count of 11,900. Electrolytes within normal range. Nonfasting blood sugar 132, creatinine 1.6 mg percent. Cardiac enzymes negative for myocardial necrosis. BNP slightly elevated at 1397. ASSESSMENT: 1. A 69-year-old gentleman with near syncopal episode, probable due to hypotension. 2. Mild dehydration, aggravated by diuretics. 3. Essential hypertension. 4. Chronic obstructive pulmonary disease. 5. Previous peripheral vascular disease with aortofemoral bypass. 6. Chronic alcoholism. 7. Incidental finding of a 1 cm nodule in the left lower lobe. PLAN: 1. Observation status, admission. 2. Telemetry monitoring. 3. Gentle IV hydration. 4. Blood pressure meds and diuretics have been held. 5. Carotid Doppler studies. 6. Cardiac evaluation. I discussed the case with the Cardiology service. They may set up an event monitor regarding his PVCs. 7. I gave him a copy of the report of his CT scan. He should get a PET scan as an outpatient to evaluate the nodule in the left lower lobe. 8. Further recommendation pending test. JARROD MERCEDES MD DR: CARLEEN/guzman JOB#: [id number] / [id number] RYAN Medina MD
--- NOTE | 2020-04-09 13:09 | DS ---
DATE OF DISCHARGE: 04/09/2020 ATTENDING PHYSICIAN: Dr. Mercedes. FINAL DISCHARGE DIAGNOSES: 1. Syncope due to dehydration. 2. Essential hypertension, currently hypotensive. 3. Peripheral vascular disease with previous aortofemoral bypass. 4. Coronary artery disease. 5. Chronic obstructive pulmonary disease due to heavy tobacco use. 6. Chronic alcoholism. He has since stopped. 7. Incidental finding of a 1-cm pulmonary nodule in the left lower lobe. HISTORY AND PHYSICAL: This is a pleasant 69-year-old gentleman who had a near syncopal episode, probably due to low blood pressure. He was at his computer desk, he had some skipped heartbeats, he passed out. In the ED, he had a workup. CT scan showed no evidence of blood clots; however, he had a 1.3 cm x 0.9 cm left lower lobe nodule which may be malignancy. A PET scan was recommended. His blood pressure was 90 mm systolic. He was admitted for further treatment, evaluation, and IV hydration. PHYSICAL EXAMINATION: Please see the dictated note. PERTINENT LABORATORY AND X-RAY STUDIES: Hemoglobin was 14.9 g/dL with a white count of 11,900. Electrolytes were within range. His potassium on admission was 3.8, repeated was down to 3.1. I will order some potassium supplementation. Creatinine is 1.6 mg%. Cardiac enzymes negative for myocardial ischemia. The imaging studies: The CT of the chest showed the presence of the 1.3 x 0.9 cm solid lesion in the left lower lobe. Further evaluation recommended. The carotid Doppler study showed calcific plaque within the carotid bulbs bilaterally; however, the plaque formation does not appear significant as the velocities are adequate. There is no hemodynamic stenosis. Their recommendation was a CTA of the neck to exclude significant stenosis. COURSE IN THE HOSPITAL: The patient was treated. We held his diuretics and antihypertensive medication. He did well. He wanted to go home. Cardiology Services were obtained. They will do an outpatient echocardiogram as well as event monitor. In the meantime, I have asked them to hold his lisinopril and hydrochlorothiazide. His potassium was low due to the hydrochlorothiazide. I recommended K-Dur 20 mEq daily for 7 days. In addition, I gave him a copy of the CT report. He will call Dr. Mckeon's office later this week to schedule an outpatient PET scan to assess his nodule. Strong encouragement to continue avoiding alcohol and tobacco. Whether or not he quit smoking is very difficult to assess. The patient was then discharged from our hospital in stable condition with explicit instructions and followup care. JARROD MERCEDES MD DR: CARLEEN/guzman JOB#: [id number] / [id number] RYAN Medina MD
--- NOTE | 2020-04-09 13:28 | NUR ---
NSG NOTE; DISCHARGE VERBAL AND WRITTEN DISCHARGE INSTRUCTIONS GIVEN TO PT WITH VERBAL UNDERSTANDING PT AWARE OF FOLLOW UP APPOINTMENT WITH DR MERCADO DISCHARGED TO HOME AT 1324 VIA AMB ACCOMP BY FAMILY MEMBER
--- NOTE | 2020-04-09 13:45 | CARD ---
MR#: [id number] Date of Study: 04/09/2020 Ordering Physician: IMTIAZ SILVA, Referring Physician: IMTIAZ SILVA, Tech: Gela Ghotra WOLF APPROVED REPORT EXAM: Two-dimensional and M-mode echocardiogram with Doppler and color Doppler. Other Information Quality : Good INDICATION Cardiac Disease: CAD Syncope Congestive Heart Failure Hx: CABG RISK FACTORS Hypertension 2D DIMENSIONS RVDd2.3 (2.9-3.5cm)Left Atrium(2D)3.4 (1.6-4.0cm) IVSd0.9 (0.7-1.1cm)Aortic Root(2D)3.1 (2.0-3.7cm) LVDd4.7 (3.9-5.9cm)PWd0.9 (0.7-1.1cm) LVDs2.8 (2.5-4.0cm)FS (%) 30.0 % SV73.4 mlLVEF(%)60.0 (>50%) Aortic Valve AoV Peak Jhony.161.6cm/sAoV VTI27.5cm AO Peak GR.10.4mmHgAO Mean GR.7mmHg SARAH (VTI)3.05cm2 Mitral Valve MV E Oudrwtka48.7cm/sMV DECEL UIDC387kt MV A Bqwaejgm527.1cm/sE/A Ratio0.7 Tricuspid Valve TR P. Lkyuodjo681qu/sRAP PVCOMZER9qfYq TR Peak Gr.23ciZfHFLD60brJj LEFT VENTRICLE The left ventricle is normal size. There is normal left ventricular wall thickness. The left ventricu lar systolic function is normal. The Ejection Fraction is 60-65%. Septal motion consistent with post- op state. Transmitral Doppler flow pattern is Grade I-abnormal relaxation pattern. RIGHT VENTRICLE The right ventricle is normal size. The right ventricular systolic function is normal. ATRIA The left atrium size is normal. The right atrium size is normal. The interatrial septum is intact wit h no evidence for an atrial septal defect or patent foramen ovale as noted on 2-D or Doppler imaging. AORTIC VALVE The aortic valve is calcified but opens well. Doppler and Color Flow revealed no significant aortic r egurgitation. There is no significant aortic valvular stenosis. MITRAL VALVE The mitral valve is normal in structure and function. There is no evidence of mitral valve prolapse. There is no mitral valve stenosis. Doppler and Color-flow revealed trace mitral regurgitation. TRICUSPID VALVE The tricuspid valve is normal in structure and function. Doppler and Color Flow revealed trace tricus pid regurgitation. The PA pressure was estimated at 31 mmHg. There is no tricuspid valve stenosis. PULMONIC VALVE The pulmonic valve is not well visualized. Doppler and Color Flow revealed no pulmonic valvular regur gitation. There is no pulmonic valvular stenosis. GREAT VESSELS The aortic root is normal in size. The ascending aorta is not well seen. The IVC is normal in size an d collapses >50% with inspiration. PERICARDIAL EFFUSION There is no evidence of significant pericardial effusion. Critical Notification Critical Value: No <Conclusion> The left ventricular systolic function is normal. The Ejection Fraction is 60-65%. Transmitral Doppler flow pattern is Grade I-abnormal relaxation pattern. Trace mitral regurgitation. Trace tricuspid regurgitation. The PA pressure was estimated at 31 mmHg. There is no evidence of significant pericardial effusion. Signed by : Dickson Jordan, Electronically Approved : 04/09/2020 13:44:50
[2020-04-09] MEDS ORDERED: AZITHROMYCIN 250 MG TABLET. PO SCH (21:00)
== END 2020-04-09 13:24 | disposition home or self-care (01) ==
LOC: ER 20:43 → INTOOBSV 04-09 00:30 → UNDOADMIN 04-09 00:30 → 1 SOUTH 04-09 00:30
PROVIDERS: ADMIT Hospitalist; ATTEND Hospitalist
DX: E86.0 Dehydration (principal); R55 Syncope and collapse; N18.9 Chronic kidney disease, unspecified; I13.0 Hypertensive heart and chronic kidney disease with heart failure and stage 1 through stage 4 chronic kidney disease, or unspecified chronic kidney disease; I50.9 Heart failure, unspecified; J44.1 Chronic obstructive pulmonary disease with (acute) exacerbation; I73.9 Peripheral vascular disease, unspecified; F10.20 Alcohol dependence, uncomplicated; R91.1 Solitary pulmonary nodule; I25.10 Atherosclerotic heart disease of native coronary artery without angina pectoris; I25.2 Old myocardial infarction; D72.829 Elevated white blood cell count, unspecified; E78.00 Pure hypercholesterolemia, unspecified; E78.5 Hyperlipidemia, unspecified; K76.89 Other specified diseases of liver; R29.6 Repeated falls; J81.1 Chronic pulmonary edema; F17.210 Nicotine dependence, cigarettes, uncomplicated; I49.9 Cardiac arrhythmia, unspecified; R20.0 Anesthesia of skin; R41.82 Altered mental status, unspecified; I95.9 Hypotension, unspecified; N17.9 Acute kidney failure, unspecified; Z86.73 Personal history of transient ischemic attack (TIA), and cerebral infarction without residual deficits; Z88.8 Allergy status to other drugs, medicaments and biological substances; Z95.1 Presence of aortocoronary bypass graft; Z79.82 Long term (current) use of aspirin; Z79.899 Other long term (current) drug therapy
CPT/HCPCS: 36415; 70450; 71045; 71275; 80048; 80061; 80076; 80307; 81001; 82550; 82947; 83690; 83735; 83880; 84443; 84484; 85025; 85379; 85610; 85730; 86140; 93005; 93306; 93880; 94640; 96361; 96365; 96372; 96375; 99285; G0378; J0456; J0696; J1650; J1940; J7120; Q9967; G0379

== ENCOUNTER 2020-04-19 17:24 | Emergency (ER) | payer MEDICARE, OTHER ==
[~2020-04-19] VITALS: Ht 167.6 cm; Wt 72.4 kg
[2020-04-19] MEDS ORDERED: LIDOCAINE/EPI/TETRACAINE TOPICAL GEL 3 ML. TP ONE (17:30)
--- NOTE | 2020-04-19 17:39 | PHYS DOC ---
Past History Past Medical History: Alcoholism, Anxiety, Arthritis, Bronchitis, CAD, CHF, DVT, High Cholesterol, Hypertension, TIA, Other Past Surgical History: Coronary Bypass Surgery, Other Smoking: Cigarettes Alcohol Use: Rarely General Adult EDM: Chief Complaint: SKIN PROBLEM HPI: HPI: "... I had a itch or something.. and I scratch my nose....and it will not stop bleeding..." Patient is a 69 year old male who presents with bleeding from scratch on his no se..Pt. has been on Aspirin and Plavix since hx of ByPass surgery 2013. Pt. also have had CVA and continue the anti platelet meds. Pt. does continue to oral packet of Tobacco. and smokes attempting to reduce cigarettes usage. Pt. jenniferw s with Dr. Jordan, Cardiology. Dr. Dilcia Appiah as a primary. . Pt. has had some skin damage from years of sun exposure. Review of Systems: Review of Systems: Constitutional: Denies fever or chills Eyes: Denies change in visual acuity HENT: Denies nasal congestion or sore throat Respiratory: Denies cough or shortness of breath Cardiovascular: Denies chest pain or edema GI: Denies abdominal pain, nausea, vomiting, bloody stools or diarrhea : Denies dysuria Musculoskeletal: Denies back pain or joint pain Integument: Denies rash. Bleeding with skin scratch to nose Neurologic: Denies headache, focal weakness or sensory changes Endocrine: Denies polyuria or polydipsia Lymphatic: Denies swollen glands Psychiatric: Denies depression or anxiety Heart Score: Risk Factors: Risk Factors: DM, Current or recent (<one month) smoker, HTN, HLP, family history of CAD, obesity. Risk Scores: Score 0 - 3: 2.5% MACE over next 6 weeks - Discharge Home Score 4 - 6: 20.3% MACE over next 6 weeks - Admit for Clinical Observation Score 7 - 10: 72.7% MACE over next 6 weeks - Early Invasive Strategies Family History: Family History: Non contributory to presentation Current Medications: Current Meds: Current Medications Medications (Trade) Dose Ordered Sig/Damion Start Time Stop Time Status Last Admin Dose Admin Lidocaine/ Epinephrine (Let (Akzn-Sdrklvk-Xdrre) Gel) 3 ml 1X ONCE 04/19/20 17:30 04/19/20 17:31 UNV Allergies: Allergies: Allergies Coded Allergies Type Severity Reaction Last Updated Verified Gjlijfq-Zed-Noa Reductase Inhibitor Allergy Unknown 12/18/17 Yes Physical Exam: PE: Constitutional: no acute distress, non-toxic appearance. [] HENT: Normocephalic, atraumatic, bilateral external ears normal, oropharynx moist, no oral exudates, nose scratch. Eyes: PERRLA, EOMI, conjunctiva normal, no discharge. [] Neck: Normal range of motion, no tenderness, supple, no stridor. [] Cardiovascular:Heart rate regular rhythm, no murmur []PMI to Lt. Lungs & Thorax: Bilateral breath sounds clear to auscultation []Mid line scar. Abdomen: Bowel sounds normal, soft, no tenderness, no masses, no pulsatile masses. [place]er Skin: Warm, dry, no erythema, no rash. Poor turgor. . Back: No tenderness, no CVA tenderness. [] Extremities: No tenderness, no cyanosis, no clubbing, ROM intact, no edema. Arthritic changes. Lost of hair over lower Ext. Neurologic: Alert and oriented X 3, normal motor function, normal sensory function, no focal deficits noted. [] Psychologic: Affect anxious, judgement normal, mood normal. [] Current Patient Data: Vital Signs: Vital Signs Date Time Temp Pulse Resp B/P (MAP) Pulse Ox O2 Delivery O2 Flow Rate FiO2 04/19/20 17:33 98.2 97 16 123/52 (75) 99 Room Air EKG: EKG: [] Radiology/Procedures: Radiology/Procedures: [] Course & Med Decision Making: Course & Med Decision Making Pertinent Labs and Imaging studies reviewed. (See chart for details) Site cleaned. Application Epi and Let. Appears to have adequate hemostasis. Application of Gel Foam applied with band aid. Recommend pt. follow with Dermatology. Pt. to follow with Dr. Mckeon. Pt. to hold ASA and Plavix x 1 day. Apply polysporin 4 x until scratch is healed. Direct pressure until bleeding stops. Wear jel foam as long as possible. Follow up with Dr. Mckeon. Impression: 1. Scratch- site localized bleeding [] Dragon Disclaimer: Dragamanda Disclaimer: This electronic medical record was generated, in whole or in part, using a voice recognition dictation system. Departure Departure: Disposition: 01 HOME/RESIDENCE PRIOR TO ADM Condition: STABLE Referrals: RYAN MCKEON MD (PCP) Justification of Admission: Justification of Admission: Justification of Admission Dx: N/A Dragon Disclaimer This chart was dictated in whole or in part using Voice Recognition software in a busy, high-work load, and often noisy Emergency Department environment. It may contain unintended and wholly unrecognized errors or omissions. Dragon Disclaimer This chart was dictated in whole or in part using Voice Recognition software in a busy, high-work load, and often noisy Emergency Department environment. It may contain unintended and wholly unrecognized errors or omissions. THEODORA TIERNEY MD Apr 19, 2020 17:39
[2020-04-19] MEDS ORDERED: GELATIN SPONGE SIZE 12-7MM SPONGE. ONE (18:02)
[2020-04-19 18:04] VITALS: BP 125/93
== END 2020-04-19 18:13 | disposition home or self-care (01) ==
LOC: ER 17:24
DX: S00.31XA Abrasion of nose, initial encounter (principal); M19.90 Unspecified osteoarthritis, unspecified site; I25.810 Atherosclerosis of coronary artery bypass graft(s) without angina pectoris; I11.0 Hypertensive heart disease with heart failure; I50.9 Heart failure, unspecified; E78.00 Pure hypercholesterolemia, unspecified; F17.210 Nicotine dependence, cigarettes, uncomplicated; F10.20 Alcohol dependence, uncomplicated; Z86.718 Personal history of other venous thrombosis and embolism; Z86.73 Personal history of transient ischemic attack (TIA), and cerebral infarction without residual deficits; Z88.8 Allergy status to other drugs, medicaments and biological substances; X58.XXXA Exposure to other specified factors, initial encounter; Y93.89 Activity, other specified; Y92.89 Other specified places as the place of occurrence of the external cause; Y99.8 Other external cause status
CPT/HCPCS: 96372; 99283; J0171

== ENCOUNTER 2021-06-08 00:37 | Inpatient (IN) | payer MEDICARE, OTHER ==
[~2021-06-08] VITALS: Ht 172.7 cm; Wt 71.6 kg
[~2021-06-08 00:37] MED LIST changes: -LISI1TAB19 PO; +LISI1TAB37 PO
[2021-06-08] MEDS ORDERED: FUROSEMIDE 40 MG/4 ML VIAL IVP ONE (01:30)
[2021-06-08] MEDS ORDERED: DEXAMETHASONE SOD PHOS 10 MG/ML VIAL. IVP ONE (01:30)
[2021-06-08] MEDS ORDERED: ALBUTEROL SULFATE 2.5 MG/3 ML NEBU. ONE (01:46)
[2021-06-08 01:49] LABS: BASO # 0.1 x10^3/uL (0.0-0.2); BASO % 1 % (0-3); EOS # 0.1 x10^3/uL (0.0-0.7); EOS % 1 % (0-3); HEMATOCRIT 48.1 % (39.0-53.0); HEMOGLOBIN 15.8 g/dL (13.0-17.5); LYMPH # 7.1 x10^3/uL (1.0-4.8); LYMPH % 37 % (24-48); MEAN CORPUSCULAR HEMOGLOBIN 31 pg (25-35); MEAN CORPUSCULAR HGB CONC 33 g/dL (31-37); MEAN CORPUSCULAR VOLUME 94 fL (79-100); MONO # 0.9 x10^3/uL (0.0-1.1); MONO % 5 % (0-9); NEUT # 11.2 x10^3uL (1.8-7.7); NEUT % 58 % (31-73); PLATELET COUNT 325 x10^3/uL (140-400); RED BLOOD COUNT 5.12 x10^6/uL (4.30-5.70); RED CELL DISTRIBUTION WIDTH 14.2 % (11.5-14.5); WHITE BLOOD COUNT 19.5 x10^3/uL (4.0-11.0)
[2021-06-08 01:53] LABS: CALCIUM 8.5 mg/dL (8.5-10.1); CREATININE 1.2 mg/dL (0.7-1.3); GFR 59.7; POTASSIUM 3.8 mmol/L (3.5-5.1)
[2021-06-08] MEDS ORDERED: dilTIAZem 25 MG/5 ML VIAL IVP ONE (02:00)
--- NOTE | 2021-06-08 02:04 | RAD ---
EXAM: CHEST ONE VIEW. HISTORY: Shortness of breath. COMPARISON: 04/08/2020. FINDINGS: A frontal view of the chest is obtained. There are changes of coronary artery bypass grafti ng. Blunting of the left costophrenic angle is consistent with a small pleural effusion or scarring. The bilateral basilar predominant interstitial infiltrates are distant with mild pulmonary edema. There i s no pneumothorax. The heart is mildly enlarged. IMPRESSION: 1. Mild pulmonary edema. Electronically signed by: Marty Diallo MD (06/08/2021 2:02 AM) [facility]
[2021-06-08 02:05] LABS: ALBUMIN 3.6 g/dL (3.4-5.0); ALBUMIN/GLOBULIN RATIO 0.9 (1.0-1.7); TOTAL BILIRUBIN 0.3 mg/dL (0.2-1.0); TOTAL PROTEIN 7.6 g/dL (6.4-8.2)
[2021-06-08 02:14] LABS: % BANDS 7 % (0-9); % LYMPHS 34 % (24-48); % MONOS 5 % (0-10); % SEGS 54 % (35-66)
[2021-06-08] MEDS ORDERED: ALBUTEROL SULFATE 2.5 MG/3 ML NEBU. CONT NEB ONE (02:30)
--- NOTE | 2021-06-08 02:58 | EKG ---
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
--- NOTE | 2021-06-08 03:15 | PHYS DOC ---
Past History Past Surgical History: Coronary Bypass Surgery Alcohol Use: Occasionally General Adult EDM: Chief Complaint: SHORTNESS OF BREATH HPI: HPI: 70-year-old male presents via EMS with heart rate of 150 and severe shortness of breath. Patient has a history of COPD as well as atrial fibrillation. Most of the history comes from EMS reports and from his in the waiting room. The patient is not able to respond due to his respiratory distress. He has been feeling a bit more short of breath the last couple of days but got much worse today and prior to arrival. No known fever. Review of Systems: Review of Systems: Constitutional: Denies fever or chills Eyes: Denies change in visual acuity HENT: Denies nasal congestion or sore throat Respiratory: shortness of breath Cardiovascular: elevated heart rate GI: Denies abdominal pain, nausea, vomiting, bloody stools or diarrhea : Denies dysuria Musculoskeletal: Denies back pain or joint pain Integument: Denies rash Neurologic: Denies headache, focal weakness or sensory changes Endocrine: Denies polyuria or polydipsia Lymphatic: Denies swollen glands Psychiatric: anxiety Current Medications: Current Meds: Current Medications Medications (Trade) Dose Ordered Sig/Damion Start Time Stop Time Status Last Admin Dose Admin Albuterol Sulfate (Ventolin) 10 mg 1X ONCE 06/08/21 02:30 06/08/21 02:31 DC Dexamethasone Sodium Phosphate (Decadron) 10 mg 1X ONCE 06/08/21 01:30 06/08/21 01:31 DC 06/08/21 01:15 10 MG Diltiazem HCl (Cardizem Iv Push) 20 mg 1X ONCE 06/08/21 02:00 06/08/21 02:01 DC 06/08/21 01:46 20 MG Furosemide (Lasix) 40 mg 1X ONCE 06/08/21 01:30 06/08/21 01:31 DC 06/08/21 01:15 40 MG Allergies: Allergies: Allergies Coded Allergies Type Severity Reaction Last Updated Verified Ahmhxnh-Kmd-Zxw Reductase Inhibitor Allergy Unknown 06/08/21 Yes Physical Exam: PE: Constitutional: Well developed, well nourished, severe acute distress. [] HENT: Normocephalic, atraumatic, bilateral external ears normal, oropharynx moist, no oral exudates, nose normal. [] Eyes: PERRLA, EOMI, conjunctiva normal, no discharge. [] Neck: Normal range of motion, no tenderness, supple, no stridor. [] Cardiovascular: Heart rate 141, irrregular rhythm, no murmur [] Lungs & Thorax: Bilateral breath sounds severely diminished with expiratory wheezing. [] Abdomen: Bowel sounds normal, soft, no tenderness, no masses, no pulsatile masses. [] Skin: Warm, dry, no erythema, no rash. [] Back: No tenderness, no CVA tenderness. [] Extremities: No tenderness, no cyanosis, no clubbing, ROM intact, no edema. [] Neurologic: Alert and oriented X 3, normal motor function, normal sensory function, no focal deficits noted. [] Psychologic: Affect normal, judgement normal, mood anxious. [] Current Patient Data: Labs: Laboratory Tests Test 06/08/21 01:25 White Blood Count 19.5 x10^3/uL (4.0-11.0) H Red Blood Count 5.12 x10^6/uL (4.30-5.70) Hemoglobin 15.8 g/dL (13.0-17.5) Hematocrit 48.1 % (39.0-53.0) Mean Corpuscular Volume 94 fL (79-100) Mean Corpuscular Hemoglobin 31 pg (25-35) Mean Corpuscular Hemoglobin Concent 33 g/dL (31-37) Red Cell Distribution Width 14.2 % (11.5-14.5) Platelet Count 325 x10^3/uL (140-400) Neutrophils (%) (Auto) 58 % (31-73) Lymphocytes (%) (Auto) 37 % (24-48) Monocytes (%) (Auto) 5 % (0-9) Eosinophils (%) (Auto) 1 % (0-3) Basophils (%) (Auto) 1 % (0-3) Neutrophils # (Auto) 11.2 x10^3uL (1.8-7.7) H Lymphocytes # (Auto) 7.1 x10^3/uL (1.0-4.8) H Monocytes # (Auto) 0.9 x10^3/uL (0.0-1.1) Eosinophils # (Auto) 0.1 x10^3/uL (0.0-0.7) Basophils # (Auto) 0.1 x10^3/uL (0.0-0.2) Segmented Neutrophils % 54 % (35-66) Band Neutrophils % 7 % (0-9) Lymphocytes % 34 % (24-48) Monocytes % 5 % (0-10) Platelet Estimate Pending Sodium Level 141 mmol/L (136-145) Potassium Level 3.8 mmol/L (3.5-5.1) Chloride Level 105 mmol/L (98-107) Carbon Dioxide Level 30 mmol/L (21-32) Anion Gap 6 (6-14) Blood Urea Nitrogen 11 mg/dL (8-26) Creatinine 1.2 mg/dL (0.7-1.3) Estimated GFR (Cockcroft-Gault) 59.7 BUN/Creatinine Ratio 9 (6-20) Glucose Level 265 mg/dL (70-99) H Calcium Level 8.5 mg/dL (8.5-10.1) Total Bilirubin 0.3 mg/dL (0.2-1.0) Aspartate Amino Transferase (AST) 76 U/L (15-37) H Alanine Aminotransferase (ALT) 61 U/L (16-63) Alkaline Phosphatase 137 U/L (46-116) H Troponin I Quantitative 0.042 ng/mL (0-0.055) LY-Auk-R-Type Natriuretic Peptide 6871 pg/mL (0-124) H Total Protein 7.6 g/dL (6.4-8.2) Albumin 3.6 g/dL (3.4-5.0) Albumin/Globulin Ratio 0.9 (1.0-1.7) L Vital Signs: Vital Signs Date Time Temp Pulse Resp B/P (MAP) Pulse Ox O2 Delivery O2 Flow Rate FiO2 06/08/21 02:10 113 28 160/82 (108) 96 BiPAP/CPAP 06/08/21 00:58 98.5 10.0 EKG: EKG: Irregular rhythm, rate 157, leftward axis, no obvious ST elevation or depression. [] Radiology/Procedures: Radiology/Procedures: [] Impressions: EXAM: CHEST ONE VIEW. HISTORY: Shortness of breath. COMPARISON: 04/08/2020. FINDINGS: A frontal view of the chest is obtained. There are changes of coronary artery bypass grafting. Blunting of the left costophrenic angle is consistent with a small pleural effusion or scarring. The bilateral basilar predominant interstitial infiltrates are distant with mild pulmonary edema. There is no pneumothorax. The heart is mildly enlarged. IMPRESSION: 1. Mild pulmonary edema. Electronically signed by: Marty Diallo MD (06/08/2021 2:02 AM) [facility] DICTATED AND SIGNED BY: SUSAN DIALLO MD DATE: 06/08/21 0200 CC: ANU ORELLANA DO ~MTH0 0 Heart Score: C/O Chest Pain: No Risk Factors: Risk Factors: DM, Current or recent (<one month) smoker, HTN, HLP, family history of CAD, obesity. Risk Scores: Score 0 - 3: 2.5% MACE over next 6 weeks - Discharge Home Score 4 - 6: 20.3% MACE over next 6 weeks - Admit for Clinical Observation Score 7 - 10: 72.7% MACE over next 6 weeks - Early Invasive Strategies Course & Med Decision Making: Course & Med Decision Making Pertinent Labs and Imaging studies reviewed. (See chart for details) The patient came in appear to be in significant respiratory distress. He was able to maintain adequate oxygen on 10 L nasal cannula, but I switched him over the nonlabored breather due to his trying to breathe out of his mouth out over 35 respirations a minute. The patient's heart rate was significantly elevated in the 140s to 150s. He was given 20 mg of Cardizem IV and his heart rate improved to around 100. The patient's blood pressure was elevated 200s over 120. It has improved to 137/84. The patient sounded wet on auscultation so I gave him 40 mg of Lasix IV and 10 mg of Decadron IV. He continued to have rapid respirations so we have placed him on BiPAP. He is much more comfortable at this time. Patient's chest x-ray was significant for pulmonary edema. Patient was also given a 1 hour albuterol nebulizer treatment. He has been swabbed for COVID-19 as his vaccination status is unknown. I will admit the patient to the hospital for COPD exacerbation and uncontrolled atrial fibrillation. Due to the hospital being full, the patient is held in the ER. After period of time on BiPAP, he is doing much better. The patient is awake and alert. He states that he feels better. We are able to switch him over to 5 L of nasal cannula and we will see how he does. He is maintaining his oxygen saturation of 93%. His repeat troponin is 0.252. I have ordered repeat EKG. I spoke with Dr. Casey and he has accepted the patient for admission. Repeat EKG does not show ST elevation. This elevation could be due to the demand of his A. fib when he arrived. It could also be NSTEMI. The patient has been given aspirin but we will hold off on heparin at this time. [] Dragon Disclaimer: Dragamanda Disclaimer: This electronic medical record was generated, in whole or in part, using a voice recognition dictation system. Departure Departure: Impression: Primary Impression: Respiratory distress Additional Impressions: COPD exacerbation Atrial fibrillation Qualified Codes: I48.91 - Unspecified atrial fibrillation Disposition: ADMITTED INPATIENT Admitting Physician: Tanya Casey Condition: STABLE ANU ORELLANA Jun 08, 2021 03:15
[2021-06-08 03:50] LABS: PLT ESTIMATE ADEQUATE (ADEQUATE)
--- NOTE | 2021-06-08 06:23 | EKG ---
[facility] ED 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
[2021-06-08] MEDS ORDERED: ONDANSETRON PF 4 MG/2 ML VIAL. IVP PRN (06:30)
[2021-06-08] MEDS ORDERED: ASPIRIN CHEWABLE 81 MG TABLET. PO ONE (07:00)
[2021-06-08] MEDS: IPRATRPIUM/ALBUTEROL 0.5/2.5MG 3 ML NEBU. NEB SCH ×4 (08:00→20:00)
[2021-06-08] MEDS ORDERED: AZITHROMYCIN 250 MG TABLET. PO ONE (09:00)
[2021-06-08 16:22] VITALS: BP 170/72
[2021-06-08] MEDS ORDERED: DEXTROSE 50% 25 GM / 50ML DISP.SYRIN. IV PRN (16:45)
[2021-06-08] MEDS: INSULIN LISPRO 300 UNITS/3 ML VIAL. SQ SCH (17:00)
[2021-06-08] MEDS: NICOTINE 21MG PATCH. TD SCH (17:45)
--- NOTE | 2021-06-08 18:58 | HP ---
ADMIT DATE: 06/08/2021 HISTORY OF PRESENT ILLNESS: The patient is a 70-year-old male patient who presented to the Emergency Room with a complaint of shortness of breath and tachycardia with a heart rate of 150. When he came, he was apparently confused and most of the information came from his . He was unable to respond due to his respiratory distress. He apparently had been more short of breath over the last couple of days, it got much worse the day of admission prior to arrival. He also complained of chest pain, mostly retrosternal, associated with shortness of breath, but denied any nausea or vomiting. Denied any diaphoresis. He apparently was extensively investigated in the Emergency Room and has had lab work, which showed that he has leukocytosis with a white cell count 19,500. His chemistry showed that he has hyperglycemia and his troponin was 0.042. His beta-natriuretic peptide was high at 6871. His chest x-ray showed the patient has blunting of the left costophrenic angle consistent with small pleural effusion with scarring. There is bilateral basilar predominant interstitial infiltrate consistent with mild pulmonary edema. There is no pneumothorax. The heart is mildly enlarged. Apparently, the patient was treated with IV Lasix and was given a bolus of Cardizem 20 mg as he initially came with a heart rate of 140 to 150, his blood pressure was extremely high at 200/120. He was given 40 mg of IV Lasix and 10 mg of Decadron and therefore he was placed on BiPAP machine. His chest x-ray was significant for pulmonary edema. He was also treated for albuterol nebulizer treatment, was swabbed for COVID-19. He has stayed in the Emergency Room for almost 13 hours and 3 sets of cardiac enzymes, which showed that his troponin has steadily risen from 0.042 to 0.252 and now the last one was 0.316. The patient was treated with IV dexamethasone, azithromycin and albuterol and was admitted to continue with all his medication and to consult the Cardiology team. PAST MEDICAL HISTORY: Significant for chronic obstructive pulmonary disease, hypertension, hyperlipidemia, coronary artery disease status post CABG and peripheral vascular disease status post stenting as well as bilateral lower extremity bypass grafting. He has had a CVA and TIA with right-sided weakness. Apparently, he continues to have residual right-sided hemiparesis. He is unsteady on his gait, he uses a cane when he walks outside the house. He was admitted here in 04/2020 with pulmonary edema and at that time, he had an echocardiogram done which showed that his left ventricular systolic function is normal, ejection fraction was 60-65%. The transmitral Doppler flow pattern is grade I, abnormal relaxation pattern. He has trace mitral regurgitation, trace tricuspid regurgitation. The pulmonary artery pressure was estimated at that time to be 31 mmHg. There is no evidence of significant pericardial effusion. PAST SURGICAL HISTORY: Significant for percutaneous coronary intervention with stent deployment and also stent deployment to both lower extremities arteries. He has coronary artery bypass graft, status post CABG and also bilateral femoropopliteal bypass graft surgery. He had also jaw surgery and colonoscopy. ALLERGIES: HE IS INTOLERANT TO STATINS, DEVELOPS SEVERE ACHES, PAINS AND ARTHRALGIAS, ARTHRITIS AND BECOMES UNABLE TO WALK BECAUSE OF SEVERITY OF THE PAIN ACCORDING TO HIM. FAMILY HISTORY: Significant fact, has 1 older brother at the age of 58 because of the CVA. His father at age of 60 because of myocardial infarction. Mother at age of 60 because of a stroke. He has 1 brother, younger, has lung cancer, hypertension and 1 sister still alive, but he does not keep up in touch with her. SOCIAL HISTORY: He is , has no children. He smokes pack a day. He actually told me he smokes about 40 cigars a day and has been smoking for more than 50 years and he is not willing to stop. He drinks mostly hard liquor on a daily basis, but stopped about a year ago. He denied any alcohol withdrawal seizures, delirium tremens. Does not use any marijuana, cocaine, amphetamine, or methamphetamine. 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 His home medications, not known yet. REVIEW OF SYSTEMS: As per history of present illness. PHYSICAL EXAMINATION: GENERAL: On arrival to the Emergency Room, his heart rate was 149, blood pressure 210/120, temperature was 98.5, respiratory rate was 36 and oxygen saturation was 98% on 10 liters of oxygen by nonrebreather mask. HEAD, EYES, EARS, NOSE, AND THROAT: Normocephalic, atraumatic. NECK: Supple. HEART: Normal first and second heart sounds, no gallop or murmur. CHEST: Shows central trachea, equally reduced expansion, reduced air entry, vesicular breath sounds. Scattered rhonchi and bilateral basal crepitation posteriorly. ABDOMEN: Slightly distended, soft, nontender. NEUROLOGIC: He was extremely tachypneic and tachycardic, was unable to give any useful information; however, he is grossly intact. LABORATORY DATA: His lab work on arrival showed a white cell count of 19,500, hemoglobin 15.8, hematocrit 48, MCV 94 and platelet count of 325,000 with a manual differential of 58% polymorphs, 37% lymphocytes, 5% monocytes. His chemistry showed a serum sodium 141, potassium 3.8, chloride 105, bicarbonate 30, anion gap of 6, BUN 11, creatinine 1.2. Estimated GFR was 59 mL per minute. His glucose was 265, calcium was 8.5. Total bilirubin, AST, ALT, alkaline phosphatase slightly elevated. He has 3 sets of cardiac enzymes that is steadily rising. Magnesium was 2.1. Total protein was 7.6, albumin 3.6. His beta-natriuretic peptide was 6871. His COVID-19 by PCR was negative. Chest x-ray consistent with pulmonary edema and probably left-sided pleural effusion versus pneumonia. PLAN: My plan is to continue with IV antibiotic in the form of ceftriaxone as well as Zithromax, continue. I will obviously contact his and get the list of his medication. We will consult the cardiology. I think he has non-ST segment elevation myocardial infarction and we will check his fasting lipid profile. His blood sugar is high. We will monitor his blood sugar and start him on insulin sliding scale if deemed necessary. RADHA DR: Josefa TID: [id number]
[2021-06-08] MEDS ORDERED: ASPI81TA59 PO (19:08)
[2021-06-08] MEDS ORDERED: LISI20TA18 PO (19:08)
[2021-06-08] MEDS ORDERED: RIVA10TA PO (19:08)
[2021-06-08] MEDS ORDERED: CLOP75TA57 PO (19:08)
[2021-06-08] MEDS ORDERED: TORS10TA3 PO (19:09)
[2021-06-08] MEDS ORDERED: NITR0.4T24 SL (19:09)
[2021-06-08] MEDS ORDERED: NITROGLYCERIN SUBLINGUAL 0.4 MG BOTTLE OF 25. SL PRN (19:45)
[2021-06-08] MEDS ORDERED: RIVA2.5T PO (20:13)
[2021-06-08 20:19] VITALS: BP 164/77
[2021-06-08] MEDS ORDERED: RIVAROXABAN 10 MG TABLET. PO SCH (21:00)
[2021-06-08] MEDS: LACTOBACILLUS RHAMNOSUS GG 1 CAPSULE. PO SCH (21:54)
[2021-06-08] MEDS: RIVAROXABAN 10 MG TABLET. PO SCH (21:55)
[2021-06-08] MEDS: methylPREDNISolone SOD SUCC PF 40 MG/ML VIAL. IV SCH (21:55)
[2021-06-08 23:00] LABS: BILIRUBIN,URINE NEG (NEG); CLARITY,URINE CLEAR; COLOR,URINE YELLOW; GLUCOSE,URINE NEG (NEG)
[2021-06-08 23:01] LABS: BACTERIA,URINE FEW /HPF (0-FEW); NITRITE,URINE NEG (NEG); RBC,URINE 0 /HPF (0-2); SQUAMOUS EPITHELIAL CELL,UR OCC /LPF; UROBILINOGEN,URINE 0.2 mg/dL (0.2 mg/dL)
[2021-06-09] MEDS: IPRATRPIUM/ALBUTEROL 0.5/2.5MG 3 ML NEBU. NEB SCH ×4 (05:32→19:06)
[2021-06-09 05:59] VITALS: BP 126/75
[2021-06-09 06:20] LABS: HEMATOCRIT 43.3 % (39.0-53.0); HEMOGLOBIN 14.4 g/dL (13.0-17.5); RED BLOOD COUNT 4.67 x10^6/uL (4.30-5.70); RED CELL DISTRIBUTION WIDTH 14.2 % (11.5-14.5); WHITE BLOOD COUNT 17.6 x10^3/uL (4.0-11.0)
--- NOTE | 2021-06-09 06:27 | EKG ---
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
[2021-06-09 06:45] LABS: ALBUMIN/GLOBULIN RATIO 0.9 (1.0-1.7); CALCIUM 8.7 mg/dL (8.5-10.1); CREATININE 0.8 mg/dL (0.7-1.3); GFR 95.3; POTASSIUM 3.9 mmol/L (3.5-5.1); TOTAL BILIRUBIN 0.2 mg/dL (0.2-1.0); TOTAL PROTEIN 6.5 g/dL (6.4-8.2)
[2021-06-09] MEDS: INSULIN LISPRO 300 UNITS/3 ML VIAL. SQ SCH ×3 (07:37→16:44)
[2021-06-09] MEDS: FUROSEMIDE 40 MG/4 ML VIAL IVP SCH (08:14)
[2021-06-09] MEDS: methylPREDNISolone SOD SUCC PF 40 MG/ML VIAL. IV SCH ×2 (08:14→19:06)
[2021-06-09] MEDS: NICOTINE 21MG PATCH. TD SCH (08:15)
[2021-06-09] MEDS: ASPIRIN CHEWABLE 81 MG TABLET. PO SCH (08:15)
[2021-06-09] MEDS: AZITHROMYCIN 250 MG TABLET. PO SCH (08:15)
[2021-06-09] MEDS: CLOPIDOGREL BISULFATE 75 MG TABLET PO SCH (08:15)
[2021-06-09] MEDS: TORSEMIDE 20 MG TABLET. PO SCH (08:15)
[2021-06-09] MEDS: LACTOBACILLUS RHAMNOSUS GG 1 CAPSULE. PO SCH ×2 (08:15→19:06)
[2021-06-09] MEDS: LISINOPRIL 20 MG TABLET PO SCH (08:17)
[2021-06-09] MEDS: RIVAROXABAN 10 MG TABLET. PO SCH ×2 (08:17→16:47)
[2021-06-09 11:37] VITALS: BP 121/65
[2021-06-09 15:32] VITALS: BP 132/75
[2021-06-09 19:00] VITALS: BP 147/71
[2021-06-09 22:53] VITALS: BP 115/67
--- NOTE | 2021-06-10 00:38 | PN ---
DATE: 06/09/2021 SUBJECTIVE: The patient is resting, slightly propped up in bed, in no apparent distress. On questioning him, he denied any complaint in particular, he has no further episodes of chest pain or shortness of breath. Slept very well. PHYSICAL EXAMINATION: GENERAL: When I examined him, he looked well with no pallor, jaundice, or cyanosis. No lymphadenopathy, no thyromegaly, no jugular venous distention. No lower limb edema. VITAL SIGNS: Her heart rate was 77, blood pressure is 121/65, temperature was 98.3, respiratory rate was 20 and oxygen saturation was 96% on 2 liters of oxygen. HEAD, EYES, EARS, NOSE AND THROAT: Normocephalic, atraumatic. NECK: Supple. HEART: Normal first and second heart sounds, no gallop, rub or murmur. CHEST: Clear to auscultation. No crepitation or rhonchi. ABDOMEN: Distended, soft, nontender. NEUROLOGIC: He was grossly intact. His intake and output were incompletely recorded. LABORATORY DATA: His lab work this morning showed a white cell count is down to 17,600, hemoglobin 14.4, hematocrit 43, MCV 93 and platelet count 230,000. His chemistry showed his serum sodium 143, potassium 3.9, chloride 107, bicarbonate 30, anion gap of 6, BUN 15, creatinine 0.8. Estimated GFR was 95 mL per minute. His glucose 144, calcium was 8.7. Total bilirubin, AST, ALT, alkaline phosphatase were normal. Beta natriuretic peptide was 6254. Total protein 6.5, albumin 3. ASSESSMENT: 1. Acute hypoxic respiratory failure. 2. Acute pulmonary edema 3. Chronic diastolic congestive heart failure. 4. Chronic obstructive pulmonary disease. 5. Hypertension. 6. Hyperlipidemia. 7. The patient is known to have coronary artery disease, status post CABG. 8. Peripheral vascular disease, status post stenting as well as bilateral lower extremity bypass grafting, had CVA and TIA with right-sided weakness. His troponin has risen steadily from 0.04 up to 0.316. We did continue him on IV Lasix. Continue with all his other medication as well as antibiotic for possible community-acquired pneumonia. PLAN: We will await the evaluation by the convertible top installer and decide on further management accordingly. CLIFF/OFELIA DR: CLIFF/guzman TID: [id number]
[2021-06-10 02:48] VITALS: BP 121/70
[2021-06-10] MEDS: IPRATRPIUM/ALBUTEROL 0.5/2.5MG 3 ML NEBU. NEB SCH ×2 (05:21→09:14)
[2021-06-10 05:30] VITALS: BP 129/76
[2021-06-10 06:23] LABS: BASO % 0 % (0-3); EOS % 0 % (0-3); HEMATOCRIT 41.8 % (39.0-53.0); LYMPH # 0.8 x10^3/uL (1.0-4.8); LYMPH % 5 % (24-48); MEAN CORPUSCULAR HEMOGLOBIN 31 pg (25-35); MEAN CORPUSCULAR HGB CONC 34 g/dL (31-37); MEAN CORPUSCULAR VOLUME 92 fL (79-100); MONO # 0.2 x10^3/uL (0.0-1.1); MONO % 1 % (0-9); NEUT # 15.6 x10^3uL (1.8-7.7); NEUT % 94 % (31-73); PLATELET COUNT 238 x10^3/uL (140-400); RED BLOOD COUNT 4.52 x10^6/uL (4.30-5.70); RED CELL DISTRIBUTION WIDTH 14.3 % (11.5-14.5); WHITE BLOOD COUNT 16.6 x10^3/uL (4.0-11.0)
[2021-06-10 06:30] LABS: CALCIUM 8.5 mg/dL (8.5-10.1); GFR 73.7; MAGNESIUM 2.3 mg/dL (1.8-2.4); POTASSIUM 3.7 mmol/L (3.5-5.1)
[2021-06-10] MEDS: INSULIN LISPRO 300 UNITS/3 ML VIAL. SQ SCH ×2 (08:00→12:00)
--- NOTE | 2021-06-10 08:23 | PDOC2 ---
CARDIAC CONSULT DATE OF CONSULT DOS: DATE: 06/10/21 TIME: 08:12 REASON FOR CONSULT Reason for Consult NSTEMI REFERRING PHYSICIAN Referring Physician Dr. Casey SOURCE Source: Chart review, Patient HPI History of Present Illness This is a 70yo male who presented secondary to shortness of breath. Patient had been short of breath for a couple of weeks prior to arrival. Was much more short of breath the day of arrival. Troponin noted to be mildly elevated, which p rompted this consult. He denies any chest pain, palpitations, dizziness, diaphoresis, or nausea/vomiting. Reports breathing in much improved. PAST MEDICAL HISTORY Cardiovascular: AFIB, CAD, CHF, HTN, hyperipidemia, Other (PAD) Pulmonary: COPD, Other ([place]) Renal/: Benign prostatic enlarg. PAST SURGICAL HISTORY Past Surgical History Other (bilateral fem-pop) Past Surgical History: CABG SOCIAL HISTORY Social History Smoke: 2 packs per day ALCOHOL: heavy (quit 01/21/20) Drugs: None Lives: with Family CURRENT MEDICATIONS Current Medications Current Medications Dexamethasone Sodium Phosphate (Decadron) 10 mg 1X ONCE IVP Last administered on 06/08/21at 01:15; Start 06/08/21 at 01:30; Stop 06/08/21 at 01:31; Status DC Furosemide (Lasix) 40 mg 1X ONCE IVP Last administered on 06/08/21at 01:15; Start 06/08/21 at 01:30; Stop 06/08/21 at 01:31; Status DC Diltiazem HCl (Cardizem Iv Push) 20 mg 1X ONCE IVP Last administered on 06/08/21at 01:46; Start 06/08/21 at 02:00; Stop 06/08/21 at 02:01; Status DC Albuterol Sulfate (Ventolin) 2.5 mg STK-MED ONCE .ROUTE ; Start 06/08/21 at 01:46; Stop 06/08/21 at 01:47; Status DC Albuterol Sulfate (Ventolin) 10 mg 1X ONCE CONT NEB Last administered on 06/08/21at 02:01; Start 06/08/21 at 02:30; Stop 06/08/21 at 02:31; Status DC Aspirin (Aspirin Chewable) 324 mg 1X ONCE PO Last administered on 06/08/21at 07:13; Start 06/08/21 at 07:00; Stop 06/08/21 at 07:01; Status DC Ondansetron HCl (Zofran) 4 mg PRN Q4HRS PRN IVP NAUSEA/VOMITING; Start 06/08/21 at 06:30; Stop 06/09/21 at 06:29; Status DC Albuterol/ Ipratropium (Duoneb) 3 ml RTQID NEB Last administered on 06/08/21at 14:27; Start 06/08/21 at 08:00; Stop 06/08/21 at 16:33; Status DC Azithromycin (Zithromax) 500 mg 1X ONCE PO Last administered on 06/08/21at 09:40; Start 06/08/21 at 09:00; Stop 06/08/21 at 09:03; Status DC Ceftriaxone Sodium 1 gm/ Sodium Chloride 50 ml @ 100 mls/hr Q24H IV Last administered on 06/09/21at 16:30; Start 06/08/21 at 16:30 Azithromycin (Zithromax) 250 mg DAILY PO Last administered on 06/09/21at 08:15; Start 06/09/21 at 09:00 Furosemide (Lasix) 40 mg DAILY IVP Last administered on 06/09/21at 08:14; Start 06/09/21 at 09:00 Methylprednisolone Sodium Succinate (SOLU-Medrol 40MG VIAL) 40 mg Q12HR IV Last administered on 06/09/21at 19:06; Start 06/08/21 at 21:00 Albuterol/ Ipratropium (Duoneb) 3 ml RTQID NEB Last administered on 06/10/21at 05:21; Start 06/08/21 at 20:00 Insulin Human Lispro (HumaLOG) 0-7 UNITS TIDWMEALS SQ ; Start 06/08/21 at 17:00 Dextrose (Dextrose 50%-Water Syringe) 12.5 gm PRN Q15MIN PRN IV SEE COMMENTS; Start 06/08/21 at 16:45 Lactobacillus Rhamnosus (Culturelle) 1 cap BID PO Last administered on 06/09/21at 19:06; Start 06/08/21 at 21:00 Nicotine (Nicoderm Cq 21mg Patch) 1 patch DAILY TD Last administered on 06/09/21at 08:15; Start 06/08/21 at 17:45 Aspirin (Aspirin Chewable) 81 mg DAILY PO Last administered on 06/09/21at 08:15; Start 06/09/21 at 09:00 Clopidogrel Bisulfate (Plavix) 75 mg DAILY PO Last administered on 06/09/21at 08:15; Start 06/09/21 at 09:00 Lisinopril (Prinivil) 20 mg DAILY PO Last administered on 06/09/21at 08:17; Start 06/09/21 at 09:00 Nitroglycerin (Nitrostat) 0.4 mg PRN Q5MIN PRN SL CHEST PAIN; Start 06/08/21 at 19:45 Rivaroxaban (Xarelto) 25 mg BID PO ; Start 06/08/21 at 21:00; Stop 06/08/21 at 20:30; Status DC Torsemide (Demadex) 10 mg DAILY PO Last administered on 06/09/21at 08:15; Start 06/09/21 at 09:00 Rivaroxaban (Xarelto) 2.5 mg BIDWMEALS PO Last administered on 06/09/21at 16:47; Start 06/08/21 at 21:00 Active Scripts Active Reported Xarelto (Rivaroxaban) 2.5 Mg Tablet 2.5 Mg PO BID Nitrostat (Nitroglycerin) 0.4 Mg Tab.subl 0.4 Mg SL PRN Q5MIN PRN Torsemide 10 Mg Tablet 1 Tab PO DAILY 30 Days Plavix (Clopidogrel Bisulfate) 75 Mg Tablet 1 Tab PO DAILY 30 Days Lisinopril 20 Mg Tablet 1 Tab PO DAILY Children's Aspirin (Aspirin) 81 Mg Tab.chew 81 Mg PO ALLERGIES Allergies: Coded Allergies: [id number] Reductase Inhibitor (Verified Allergy, Unknown, 06/08/21) ROS Review of Systems 14 point ROS conducted with pertinent positives noted above in hPI PHYSICAL EXAM Physical Exam General: Alert, Oriented X3, Cooperative, No acute distress HEENT: Atraumatic Lungs: diminished, faint expiratory wheeze Heart: Regular rate, Normal S1 Abdomen: Normal bowel sounds, Soft Extremities: No edema, Normal pulses Skin: No rashes, No breakdown Neuro: Normal speech, Sensation intact Psych/Mental Status: Mental status NL, Mood NL VITALS Vital Signs Vital Signs Date Time Temp Pulse Resp B/P (MAP) Pulse Ox O2 Delivery O2 Flow Rate FiO2 06/10/21 05:30 97.8 88 16 129/76 (93) 98 Nasal Cannula 2.0 LABS LABS Laboratory Tests Test 06/08/21 09:36 06/08/21 17:04 06/08/21 22:34 06/09/21 05:35 Magnesium Level 2.1 mg/dL (1.8-2.4) Troponin I Quantitative 0.316 ng/mL (0-0.055) Glucose (Fingerstick) 181 mg/dL (70-99) Urine Collection Type Void Urine Color Yellow Urine Clarity Clear Urine pH 5.0 Urine Specific [place] 1.025 Urine Protein Trace (NEG-TRACE) Urine Glucose (UA) Neg mg/dL (NEG) Urine Ketones (Stick) 15 mg/dL (NEG) Urine Blood Neg (NEG) Urine Nitrite Neg (NEG) Urine Bilirubin Neg (NEG) Urine Urobilinogen Dipstick 0.2 mg/dL (0.2 mg/dL) Urine Leukocyte Esterase Mod (NEG) Urine RBC 0 /HPF (0-2) Urine WBC 11-20 /HPF (0-4) Urine Squamous Epithelial Cells Occ /LPF Urine Bacteria Few /HPF (0-FEW) White Blood Count 17.6 x10^3/uL (4.0-11.0) Red Blood Count 4.67 x10^6/uL (4.30-5.70) Hemoglobin 14.4 g/dL (13.0-17.5) Hematocrit 43.3 % (39.0-53.0) Mean Corpuscular Volume 93 fL (79-100) Mean Corpuscular Hemoglobin 31 pg (25-35) Mean Corpuscular Hemoglobin Concent 33 g/dL (31-37) Red Cell Distribution Width 14.2 % (11.5-14.5) Platelet Count 230 x10^3/uL (140-400) Sodium Level 143 mmol/L (136-145) Potassium Level 3.9 mmol/L (3.5-5.1) Chloride Level 107 mmol/L (98-107) Carbon Dioxide Level 30 mmol/L (21-32) Anion Gap 6 (6-14) Blood Urea Nitrogen 15 mg/dL (8-26) Creatinine 0.8 mg/dL (0.7-1.3) Estimated GFR (Cockcroft-Gault) 95.3 BUN/Creatinine Ratio 19 (6-20) Glucose Level 144 mg/dL (70-99) Calcium Level 8.7 mg/dL (8.5-10.1) Total Bilirubin 0.2 mg/dL (0.2-1.0) Aspartate Amino Transf (AST/SGOT) 20 U/L (15-37) Alanine Aminotransferase (ALT/SGPT) 34 U/L (16-63) Alkaline Phosphatase 90 U/L (46-116) PD-Vaw-R-Type Natriuretic Peptide 6254 pg/mL (0-124) Total Protein 6.5 g/dL (6.4-8.2) Albumin 3.0 g/dL (3.4-5.0) Albumin/Globulin Ratio 0.9 (1.0-1.7) Triglycerides Level 79 mg/dL (0-150) Cholesterol Level 217 mg/dL (0-200) LDL Cholesterol, Calculated 159 mg/dL (0-100) VLDL Cholesterol, Calculated 15 mg/dL (0-40) Non-HDL Cholesterol Calculated 174 mg/dL (0-129) HDL Cholesterol 43 mg/dL (40-60) Cholesterol/HDL Ratio 5.0 Test 06/09/21 07:31 06/10/21 05:35 Glucose (Fingerstick) 145 mg/dL (70-99) White Blood Count 16.6 x10^3/uL (4.0-11.0) Red Blood Count 4.52 x10^6/uL (4.30-5.70) Hemoglobin 14.0 g/dL (13.0-17.5) Hematocrit 41.8 % (39.0-53.0) Mean Corpuscular Volume 92 fL (79-100) Mean Corpuscular Hemoglobin 31 pg (25-35) Mean Corpuscular Hemoglobin Concent 34 g/dL (31-37) Red Cell Distribution Width 14.3 % (11.5-14.5) Platelet Count 238 x10^3/uL (140-400) Neutrophils (%) (Auto) 94 % (31-73) Lymphocytes (%) (Auto) 5 % (24-48) Monocytes (%) (Auto) 1 % (0-9) Eosinophils (%) (Auto) 0 % (0-3) Basophils (%) (Auto) 0 % (0-3) Neutrophils # (Auto) 15.6 x10^3uL (1.8-7.7) Lymphocytes # (Auto) 0.8 x10^3/uL (1.0-4.8) Monocytes # (Auto) 0.2 x10^3/uL (0.0-1.1) Eosinophils # (Auto) 0.0 x10^3/uL (0.0-0.7) Basophils # (Auto) 0.0 x10^3/uL (0.0-0.2) Sodium Level 145 mmol/L (136-145) Potassium Level 3.7 mmol/L (3.5-5.1) Chloride Level 104 mmol/L (98-107) Carbon Dioxide Level 33 mmol/L (21-32) Anion Gap 8 (6-14) Blood Urea Nitrogen 24 mg/dL (8-26) Creatinine 1.0 mg/dL (0.7-1.3) Estimated GFR (Cockcroft-Gault) 73.7 Glucose Level 136 mg/dL (70-99) Calcium Level 8.5 mg/dL (8.5-10.1) Magnesium Level 2.3 mg/dL (1.8-2.4) ECHOCARDIOGRAM Echocardiogram <Conclusion> The left ventricular systolic function is normal. The Ejection Fraction is 60-65%. Transmitral Doppler flow pattern is Grade I-abnormal relaxation pattern. Trace mitral regurgitation. Trace tricuspid regurgitation. The PA pressure was estimated at 31 mmHg. There is no evidence of significant pericardial effusion. DATE: 04/09/20 1323 STRESS TEST Stress Test Conclusion 1. No evidence of stress induced EKG changes on vasodilator stress testing. 2. Grossly normal perfusion at stress/rest. Images degraded by motion artifact, but no significant ischemia noted. 3. Normal EF at > 60% 4. Low risk study DATE: 04/06/19 1233 HEART CATH Heart Cath Conclusion #1. Severe [place] coronary artery disease #2. Severe instent restenosis of LAD. (Recurrent instent restenosis) #3. Normal left function Recommendations Cardiac Rehabilitation Referral Aggressive Medical Therapy Cardiac Risk Reduction Program CABG On several CABG will be requested. In the meanwhile patient will be encouraged to quit smoking. Optimize medical therapy to continue. DATE: 07/12/14 9732 ASSESSMENT/PLAN Assessment/Plan 1. Acute on chronic respiratory failure with CHF and AE COPD with continued tobaccoism 2. Hypertensive urgency; now controlled 3. Acute on chronic diastolic CHF; Echo 04/27 with preserved LV systolic function. S/p IV Lasix 4. AFIB with RVR upon arrival; new finding. Converted back to SR and is maintaining 4. Mild troponin elevation; highest 0.3. Most probably type II, demand ischemia. CP free 5. CAD s/p CABG x4 07/2014. clinically stable. CP free 6. Hyperlipidemia; allergy to statin 7. PAD s/p bilateral fem-pop bypass. 8. H/o alcohol abuse; last drink 01/25 Recommendations Repeat trop to note peak Secondary prevention measures Continue Plavix therapy and Xarelto 2.5mg Add metoprolol for rate control Outpatient event monitor to guide therapy Echo to assess LV systolic function; this can be conducted on an outpatient basis Follow up in our office with IMTIAZ Lott APRN Jun 10, 2021 08:23
[2021-06-10] MEDS: AZITHROMYCIN 250 MG TABLET. PO SCH (08:24)
[2021-06-10] MEDS: CLOPIDOGREL BISULFATE 75 MG TABLET PO SCH (08:24)
[2021-06-10] MEDS: ASPIRIN CHEWABLE 81 MG TABLET. PO SCH (08:24)
[2021-06-10] MEDS: LACTOBACILLUS RHAMNOSUS GG 1 CAPSULE. PO SCH (08:25)
[2021-06-10] MEDS: TORSEMIDE 20 MG TABLET. PO SCH (08:25)
[2021-06-10] MEDS: RIVAROXABAN 10 MG TABLET. PO SCH (08:25)
[2021-06-10] MEDS: LISINOPRIL 20 MG TABLET PO SCH (08:25)
[2021-06-10] MEDS: methylPREDNISolone SOD SUCC PF 40 MG/ML VIAL. IV SCH (08:26)
[2021-06-10] MEDS: FUROSEMIDE 40 MG/4 ML VIAL IVP SCH (08:26)
[2021-06-10] MEDS: NICOTINE 21MG PATCH. TD SCH (08:27)
[2021-06-10] MEDS ORDERED: METOPROLOL TART IMMED RELEASE 25 MG TABLET. PO SCH (09:00)
[2021-06-10 10:36] VITALS: BP 146/78
[2021-06-10 11:04] VITALS: BP 146/78
[2021-06-10] MEDS ORDERED: METO25TA4 PO (14:03)
[2021-06-10] MEDS ORDERED: CEFD300C PO (14:03)
[2021-06-10] MEDS ORDERED: AZIT250T PO (14:03)
--- NOTE | 2021-06-10 14:10 | DISCH ---
HOME HEALTH DISCHARGE/MEDS DISCHARGE INFORMATION: Discharge Date: Jun 10, 2021 Final Diagnosis: Problems Medical Problems: (1) Atrial fibrillation Status: Acute (2) COPD exacerbation Status: Acute (3) Respiratory distress Status: Acute Condition on Discharge: Stable CODE STATUS: Code Status: Full HOME HEALTH: Face to Face: I certify this patient is under my care and that I, or a nurse practitioner or physician's religious assistant working with me, had a face to face encounter that meets the physician face to face encounter requirements with this patient on 06/10/2021 Medical Condition(s): CHF Halfway For: Admin/Educate Injections Physical Therapy For: Evalulation/Treatment Occupational Therapy For: Evaluation/Treatment Homebound Status Met By: Extreme weakness w/ amb. POST DISCHARGE ORDERS: Activity Instructions for Disc: Resume previous activity DIET AFTER DISCHARGE: Cardiac CERTIFICATION STATEMENT: Certification Statement: Based on the above finding, I certify that this patient is confined to the home and needs intermittent fci care, physical therapy and/or speech therapy, or continues to need occupational therapy.~ This patient is under my care, and I have initiated the establishment of the plan of care.~ This patient will be followed by myself or a community physician who will periodically review the plan of care. DISCHARGE MEDICATIONS: Home Meds Active Scripts Azithromycin (ZITHROMAX) 250 Mg Tablet, 250 MG PO DAILY for ANTI-BIOTIC for 3 Days, #3 TAB 0 Refills Prov:THOMAS CHAPARRO MD 06/10/21 Cefdinir (CEFDINIR) 300 Mg Capsule, 1 CAP PO BID for cap for 7 Days, #14 CAP Prov:THOMAS CHAPARRO MD 06/10/21 Metoprolol Tartrate (METOPROLOL TARTRATE) 25 Mg Tablet, 0.5 TAB PO BID for a fib for 30 Days, #30 TAB 1 Refill Prov:THOMAS CHAPARRO MD 06/10/21 Reported Medications Rivaroxaban (Xarelto) 2.5 Mg Tablet, 2.5 MG PO BID for blood thinner, TAB 06/08/21 Nitroglycerin (NITROSTAT) 0.4 Mg Tab.subl, 0.4 MG SL PRN Q5MIN PRN for CHEST PAIN, TAB 06/08/21 Torsemide (TORSEMIDE) 10 Mg Tablet, 1 TAB PO DAILY for 30 Days, #30 TAB 0 Refills 06/08/21 Clopidogrel Bisulfate (PLAVIX) 75 Mg Tablet, 1 TAB PO DAILY for 30 Days, #30 TAB 0 Refills 06/08/21 Lisinopril (LISINOPRIL) 20 Mg Tablet, 1 TAB PO DAILY, #30 TAB 5 Refills 06/08/21 Aspirin (Children's Aspirin) 81 Mg Tab.chew, 81 MG PO, TAB.CHEW 06/08/21 Alirocumab (Praluent Syringe) 75 Mg/1 Ml Syringe, 75 MG SQ 08/06/16 Discontinued Reported Medications Aspirin (ASPIRIN) 325 Mg Tablet, 1 TAB PO DAILY for HEART HEALTH LAST DOSE GIVEN: DATE: TODAY TIME: AM NEXT DOSE DUE: DATE: TOMORROW TIME: AM 12/11/17 Aspirin (ASPIRIN) 325 Mg Tablet, 325 MG PO 08/06/16 Rivaroxaban (XARELTO) 10 Mg Tablet, 2.5 TAB PO BID for 7 Days, #35 TAB 0 Refills 06/08/21 THOMAS CHPAARRO MD Jun 10, 2021 14:10
--- NOTE | 2021-06-10 17:09 | CARD ---
MR#: [id number] Date of Study: 06/10/2021 Ordering Physician: IMTIAZ SILVA, Referring Physician: IMTIAZ SILVA, Tech: Damon Mcbride [facility] APPROVED REPORT EXAM: Two-dimensional and M-mode echocardiogram with Doppler and color Doppler. Other Information Quality : Average Rhythm : NSR INDICATION Aortic Valve Disease Cardiac Disease: CAD Surgery/Intervention CABG: RISK FACTORS Hypertension Hyperlipidemia Family History Smoking COPD 2D DIMENSIONS Left Atrium(2D)4.0 (1.6-4.0cm)IVSd1.4 (0.7-1.1cm) Aortic Root(2D)3.3 (2.0-3.7cm)LVDd5.7 (3.9-5.9cm) LVOT Diameter2.2 (1.8-2.4cm)PWd1.1 (0.7-1.1cm) LVDs5.2 (2.5-4.0cm)FS (%) 7.9 % SV27.4 mlLVEF(%)17.3 (>50%) Aortic Valve AoV Peak Jhony.141.3cm/sAoV VTI24.3cm AO Peak GR.8.0mmHgLVOT Peak Jhony.84.5cm/s LVOT VTI 16.30cmAO Mean GR.4mmHg SARAH (VMAX)2.72nz6PXY (VTI)2.53cm2 Mitral Valve MV E Vdmbtlam340.6cm/sMV E Peak Gr.6mmHg MV DECEL [id number] A Lgrfvher17.6cm/s MV E Mean Gr.3mmHgE/A Ratio1.5 Pulmonary Valve PV Peak Tlniyzlt34.8cm/sPV Peak Grad.2mmHg Tricuspid Valve TR P. Uuotbgtg251jz/sTR Peak Gr.13mmHg LEFT VENTRICLE The Left Ventricle is borderline dilated. There is mild concentric left ventricular hypertrophy. The ejection fraction isseverely impaired. The Ejection Fraction is 35%. There is severe global hypokines is. Tissue Doppler imaging reveals moderate left ventricular diastolic dysfunction. RIGHT VENTRICLE The right ventricle is normal size. There is normal right ventricular wall thickness. The right ventr icular systolic function is normal. ATRIA The left atrium is moderately dilated. The right atrium size is normal. The interatrial septum is int act with no evidence for an atrial septal defect or patent foramen ovale as noted on 2-D or Doppler i maging. AORTIC VALVE The aortic valve is calcified but opens well. The aortic valve is moderately sclerotic. Doppler and C olor Flow revealed no significant aortic regurgitation. There is no significant aortic valvular steno sis. There is no aortic valvular vegetation. MITRAL VALVE The mitral valve is normal in structure and function. There is no evidence of mitral valve prolapse. There is no mitral valve stenosis. Doppler and Color-flow revealed mild mitral regurgitation. TRICUSPID VALVE The tricuspid valve is normal in structure and function. Doppler and Color Flow revealed trivial tric uspid regurgitation. There is no tricuspid valve prolapse or vegetation. There is no tricuspid valve stenosis. PULMONIC VALVE Doppler and Color Flow revealed no pulmonic valvular regurgitation. There is no pulmonic valvular giacomo nosis. GREAT VESSELS The aortic root is normal in size. The ascending aorta is normal in size. IVC mildly dilated with dilma nted inspiratory response. PERICARDIAL EFFUSION There is no pleural effusion. There is no evidence of significant pericardial effusion. Critical Notification Critical Value: No <Conclusion> The ejection fraction isseverely impaired. The Ejection Fraction is 35%. There is severe global hypokinesis. Doppler and Color-flow revealed mild mitral regurgitation. Signed by : Azam Nova, Electronically Approved : 06/10/2021 17:08:33
== END 2021-06-10 16:10 | disposition home health service (06) | DRG 177 ==
LOC: ER 00:37 → MERGE 06:23 → 1 SOUTH 06:23 → ER 14:50 → 1 SOUTH 16:01
PROVIDERS: ADMIT Internal Medicine; ATTEND Internal Medicine
PROC: 5A09357 Assistance with Respiratory Ventilation, Less than 24 Consecutive Hours, Continuous Positive Airway Pressure (ICD-10-PCS; principal; 2021-06-08)
DX: J15.6 Pneumonia due to other Gram-negative bacteria (principal); J96.21 Acute and chronic respiratory failure with hypoxia; I50.33 Acute on chronic diastolic (congestive) heart failure; J44.1 Chronic obstructive pulmonary disease with (acute) exacerbation; J15.9 Unspecified bacterial pneumonia; D72.829 Elevated white blood cell count, unspecified; E78.5 Hyperlipidemia, unspecified; F17.210 Nicotine dependence, cigarettes, uncomplicated; I11.0 Hypertensive heart disease with heart failure; I16.0 Hypertensive urgency; G47.33 Obstructive sleep apnea (adult) (pediatric); I25.10 Atherosclerotic heart disease of native coronary artery without angina pectoris; I48.91 Unspecified atrial fibrillation; I73.9 Peripheral vascular disease, unspecified; Z20.822 Contact with and (suspected) exposure to COVID-19; Z80.1 Family history of malignant neoplasm of trachea, bronchus and lung; Z82.3 Family history of stroke; Z82.49 Family history of ischemic heart disease and other diseases of the circulatory system; Z86.73 Personal history of transient ischemic attack (TIA), and cerebral infarction without residual deficits; Z88.8 Allergy status to other drugs, medicaments and biological substances; Z95.1 Presence of aortocoronary bypass graft; Z95.820 Peripheral vascular angioplasty status with implants and grafts
CPT/HCPCS: 36415; 71045; 80048; 80053; 80061; 81001; 82947; 83735; 83880; 84484; 85007; 85025; 85027; 87086; 87449; 93005; 93306; 94618; 94640; 94644; 94660; 94760; 96374; 96375; J0696; J1100; J1815; J1940; J2920; J3490; U0003; 99285-25; J7613

== ENCOUNTER → 2021-08-13 | Outpatient (CLI) | payer MEDICARE, OTHER ==
[~2021-08-13] MED LIST changes: +ASPI81TA59 PO; +AZIT250T PO; +CEFD300C PO; +CLOP75TA57 PO; +LISI20TA18 PO; +METO25TA4 PO; +NITR0.4T24 SL; +RIVA10TA PO; +RIVA2.5T PO; +TORS10TA3 PO
--- NOTE | 2021-08-13 13:13 | RAD ---
MR#: [id number] Date of Study: 08/13/2021 Ordering Physician: ADRIEN MERCADO, Referring Physician: ADRIEN MERCADO, Tech: Gilda Diaz RVT, [facility] APPROVED REPORT Patient Location: OUT-PATIENT Indications Claudication: Rest Pain: Grayscale images the bilateral lower extremity arterial vessels demonstrate moderate diffuse atherosc lerosis. On the right side the superficial femoral artery is occluded. There is a patent bypass graft with no rmal biphasic velocities extending from the common femoral artery to the popliteal segment. Below th e knee velocities are diminished but there is three-vessel runoff. Likely small vessel disease at th e level of the pedal arch. Similarly on the left side there is an occlusion of the SFA. There is a patent bypass graft with thr ee-vessel runoff with monophasic waveforms. Of note there are monophasic waveforms in the bilateral common femoral arteries, this may be suggesti ve of more proximal inflow disease. VELOCITY AND DOPPLER WAVEFORM ANALYSIS RIGHT cm/secWaveformSeverity LEFT cm/secWaveform Severity pCFA 130.0MonophasicpCFA 100.0Monophasic Prof Fem Art. 135.0MonophasicProf Fem Art. 57.0Monophasic Fem Art Prox. OccludedFem Art Prox. Occluded Fem Art Mid. OccludedFem Art Mid. Occluded Fem Art Dist. OccludedFem Art Dist. Occluded Pop Art(Fossa) 33.0MonophasicPop Art(AK) 32.0Biphasic ELEMENT WINDING MACHINE TENDER Prox. 66.0MonophasicPTA Prox. 74.0Biphasic ELEMENT WINDING MACHINE TENDER Dist. 22.0MonophasicPTA Dist. 11.0Monophasic Per Art Dist.49.0MonophasicPer Art Dist.45.0Biphasic JOANIE Prox. 36.0MonophasicATA Prox. 51.0Biphasic DPA 9MonophasicDPA 51Biphasic BYPASS GRAFT ANALYSIS RIGHT cm/secWaveform SeverityLEFT cm/secWaveformSeverity Proximal 104BiphasicProximal 42Biphasic Mid 45.0BiphasicMid 60.0Biphasic Distal 78.0BiphasicDistal 77.0Biphasic Critical Notification Critical Value: No <Conclusion> 1. Patent bilateral femoropopliteal bypass grafts 2. Three-vessel runoff below the knee with moderate diffuse disease and likely small vessel disease at the level of the pedal arches 3. Cannot rule out inflow disease, clinical correlation recommended or consider YANA 4. No clear evidence of right groin hematoma or stenosis at the level of the Right common femoral ar camila. Signed by : Azam Nova, Electronically Approved : 08/13/2021 13:13:15
== END ==
LOC: US 10:41
PROVIDERS: ATTEND Internal Medicine Cardiovascular Disease
DX: I73.9 Peripheral vascular disease, unspecified (principal)
CPT/HCPCS: 93925

== ENCOUNTER → 2022-04-07 | Outpatient (CLI) | payer MEDICARE, OTHER | LOC: ECHO 13:08 | PROVIDERS: ATTEND Internal Medicine Cardiovascular Disease | DX: I25.5 Ischemic cardiomyopathy (principal) | CPT/HCPCS: 93306 ==